=== PATIENT | male | born 1945 | race Caucasian/White ===

== ENCOUNTER 2018-04-20 10:59 | Emergency (ER) | payer OTHER, SELFPAY ==
--- NOTE | 2018-04-20 11:07 | ED.HA ---
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 Patient states that it has been going on for greater than 1 week. States that has been worsening over the past week. Has tried his 's pain medication at home without any improvement. Denies any vision changes. Denies any pain with movement of his mouth. Does point to his left yarsani. States that is reproducible with palpation on the left side. No balance issues. No changes in his baseline Parkinson's issues. States that it was a gradual onset. Has not any fevers. No neck pain. Related Data Home Medications Medication Instructions Recorded Confirmed atorvastatin 10 mg PO DAILY 04/20/18 04/20/18 carbidopa-levodopa 1 tab PO TID 04/20/18 04/20/18 citalopram 20 mg PO DAILY 04/20/18 04/20/18 diltiazem HCl [Cartia XT] 240 mg PO DAILY 04/20/18 04/20/18 levothyroxine 100 mcg PO DAILY 04/20/18 04/20/18 warfarin 5 mg PO QTUTHSA 04/20/18 04/20/18 Previous Rx's Medication Instructions Recorded pantoprazole [Protonix] 40 mg PO QDAY #30 tab 12/20/16 orcyivydvc-xihcstoczwtow-ncxd 1 cap PO Q4H PRN #7 cap 04/20/18 Allergies Allergy/AdvReac Type Severity Reaction Status Date / Time codeine [CODEINE] Allergy Unknown Abdominal Verified 04/20/18 11:27 Pain Penicillins [PENICILLINS] Allergy Unknown Abdominal Verified 04/20/18 11:27 Pain aspirin [ASPIRIN] AdvReac Mild STOMACH Verified 04/20/18 11:27 PROBLEMS oxycodone [OXYCODONE] AdvReac Unknown Abdominal Verified 04/20/18 11:27 Pain Review of Systems Constitutional Denies chills, Denies fatigue, Denies fever(s) and Reports headache(s) Eyes Denies blurry vision, Denies change in vision, Denies diplopia, Denies dry eyes, Denies floaters, Denies irritation, Denies loss of vision, Denies eye pain, Denies seeing flashes and Denies photophobia ENT Ears, Nose, Mouth, and Throat: Denies dental pain, Denies vertigo, Denies dizziness, Denies otalgia, Denies facial pain, Reports headache(s), Denies hearing loss, Denies nasal trauma, Denies disequilibrium, Denies sinus pain and Denies sore throat Cardiovascular Denies chest pain, Denies palpitations and Denies dyspnea Respiratory Denies cough and Denies dyspnea Gastrointestinal Gastrointestinal: Denies constipation, Denies diarrhea, Denies nausea and Denies vomiting Genitourinary Denies dysuria and Denies flank pain Musculoskeletal Denies myalgias, Denies arthralgias, Denies numbness and Denies tingling Integumentary/Breasts Denies lesions and Denies rash Neurologic Denies confusion, Denies vertigo, Denies dizziness, Reports headache(s), Denies lack of coordination, Denies focal weakness, Denies loss of vision, Denies memory loss, Denies numbness, Denies radicular pain, Denies sensory deficit, Denies tingling, Denies paresthesias and Denies disequilibrium Psychiatric Denies confusion and Denies memory loss Endocrine Denies fatigue and Denies palpitations Hematologic/Lymphatic Reports easy bleeding (On Coumadin) [facility] Social History Smoking Status: Never smoker Exam Initial Vital Signs Initial Vital Signs: Vital Signs Temperature 98.3 F 04/20/18 11:19 Pulse Rate 83 04/20/18 11:19 Respiratory Rate 20 04/20/18 11:19 Blood Pressure 135/81 H 04/20/18 11:19 Pulse Oximetry 97 04/20/18 11:19 Const General: cooperative, healthy appearing, comfortable, well developed, well groomed and No acute distress Nutritional Appearance: average body habitus Orientation: alert, awake and oriented x3 HENMT Head: normal to inspection, normocephalic, atraumatic, No palpable skull fracture, No raccoon eyes and temporal artery tenderness (Left) Ears: hearing grossly normal bilaterally, TM's normal bilaterally and EAC's normal Nose: external nose normal Face and sinus: normal facial exam and sinuses nontender Mouth: oral mucosae normal Teeth and gingiva: other Eyes General: appearance normal, both eyes and all related structures Conjunctivae: conjunctivae normal Pupils: PERRL EOM: EOM intact bilaterally Resp Effort & Inspection: normal respiratory effort Auscultation: clear to auscultation bilaterally Cardio Rate: regular rate Rhythm: regular rhythm Pulses: radial pulses present Skin Lesions: no lesions Rashes: no rashes Neuro General: alert, awake, oriented x3, gait normal, tone normal, moves all extremities, normal light touch, pain and propioception, no meningeal signs and CN's II-XI intact bilaterally Cranial Nerves: CN's II-XI intact bilaterally Cognition: normal cognition Motor: muscle tone normal throughout Sensory Exam: no sensory deficits noted Extrem General: normal to inspection and full ROM Psych Appearance: grossly normal and well kempt Course Orders Ordered: ED Orders 04/20/18 11:01 Basic Metabolic Panel Stat Complete Blood Count AUTO DIFF Stat Partial Thromboplastin Time Stat Prothrombin Time INR Stat 04/20/18 11:07 CT head/brain wo con Stat 04/20/18 11:33 C-Reactive Protein Quant Stat Erythrocyte Sedimentation Rate Stat Discontinued Medications Diphenhydramine HCl (Benadryl) 25 mg IV NOW ONE Stop: 04/20/18 12:48 Last Admin: 04/20/18 13:05 Dose: 25 mg Metoclopramide HCl (Reglan) 10 mg IV NOW ONE Stop: 04/20/18 12:48 Last Admin: 04/20/18 13:05 Dose: 10 mg Vital Signs - 8 hr 04/20/18 11:19 04/20/18 12:32 04/20/18 13:01 Temperature 98.3 F Pulse Rate 83 76 69 Respiratory Rate 20 16 18 Blood Pressure 135/81 H Blood Pressure [Left Arm] 118/72 125/86 H Pulse Oximetry 97 98 98 MDM - Headache Lab Data Attestation: I reviewed the patient's lab results. Result diagrams: 04/20/18 11:01 04/20/18 11:01 Lab Results 04/20/18 04/20/18 04/20/18 Range/Units 11:01 11:01 11:01 WBC 4.4 L (4.5-11.0) X10^3/uL RBC 3.89 L (4.5-5.9) X10^6/uL Hgb 11.6 L (13.5-17.5) g/dL Hct 35.1 L (41-53) % MCV 90.1 (80-100) fL MCH 29.7 (26-34) PG MCHC 32.9 (30-36) % RDW 14.8 (11.6-14.8) % Plt Count 130 L (150-400) X10^3/uL Neut % (Auto) 61.9 (50-75) % Lymph % (Auto) 27.5 (25-40) % [place] % (Auto) 7.2 (3-14) % Eos % (Auto) 3.1 (2-4) % Baso % (Auto) 0.3 (0-2) % Neut # (Auto) 2800 L (9968-9127) /uL ESR (0-15) MM/HR PT 41.0 H (10.1-12.7) SECONDS INR 3.8 H (0.9-1.3) APTT 46 H (26.4-36.2) SECONDS Sodium 140 (137-145) mmol/L Potassium 4.5 (3.4-5.1) mmol/L Chloride 104 (98-107) mmol/L Carbon Dioxide 29 (22-32) mmol/L BUN 22 H (9-20) mg/dL Creatinine 0.90 (0.66-1.25) mg/dL Estimated GFR > 60.0 (>60) mL/min BUN/Creatinine Ratio 24.4 H (6-22) Glucose 103 (80-110) mg/dL Calcium 8.2 L (8.4-10.2) mg/dL C-Reactive Protein (<1.0) mg/dL 04/20/18 04/20/18 Range/Units 11:33 11:33 WBC (4.5-11.0) X10^3/uL RBC (4.5-5.9) X10^6/uL Hgb (13.5-17.5) g/dL Hct (41-53) % MCV (80-100) fL MCH (26-34) PG MCHC (30-36) % RDW (11.6-14.8) % Plt Count (150-400) X10^3/uL Neut % (Auto) (50-75) % Lymph % (Auto) (25-40) % [place] % (Auto) (3-14) % Eos % (Auto) (2-4) % Baso % (Auto) (0-2) % Neut # (Auto) (2610-4176) /uL ESR 17 H (0-15) MM/HR PT (10.1-12.7) SECONDS INR (0.9-1.3) APTT (26.4-36.2) SECONDS Sodium (137-145) mmol/L Potassium (3.4-5.1) mmol/L Chloride (98-107) mmol/L Carbon Dioxide (22-32) mmol/L BUN (9-20) mg/dL Creatinine (0.66-1.25) mg/dL Estimated GFR (>60) mL/min BUN/Creatinine Ratio (6-22) Glucose (80-110) mg/dL Calcium (8.4-10.2) mg/dL C-Reactive Protein < 0.5 (<1.0) mg/dL Imaging Data CT scan - head: Radiologist's impression: PROCEDURE: CT HEAD/BRAIN WO CON INDICATIONS: Left-sided headache; on Coumadin. TECHNIQUE: Noncontrast 4.5 mm thick angled axial sections acquired from the foramen magnum to the vertex, with coronal and sagittal reformats. For radiation dose reduction, the following was used: automated exposure control, adjustment of mA and/or kV according to patient size. COMPARISON: [facility], MR, BRAIN W&WO CONTRAST, 02/06/2016, 17:01. [facility], CT, HEAD WITHOUT CONTRAST, 05/15/2017, 10:35. FINDINGS: Image quality: Excellent. CSF spaces: Basal cisterns are patent. No extra-axial fluid collections. The ventricles are symmetric in size and shape. Brain: No intracranial bleeds or masses. There is cerebral volume loss for age, with resultant ventricular and sulcal prominence. There are periventricular and deep white matter chronic small vessel ischemic changes. Bilateral dystrophic basal ganglia calcifications. There is intracranial internal carotid artery atherosclerosis. Skull and face: Calvarium and visualized facial bones appear intact, without suspicious lesions. Sinuses: Visualized sinuses and mastoids are clear. IMPRESSION: 1. No acute intracranial abnormalities. 2. Cerebral volume loss and chronic microvascular ischemic changes. Dictated by: Tripp Dasilva M.D. on 04/20/2018 at 11:46 Approved by: Tripp Dasilva M.D. on 04/20/2018 at 11:49 [facility] Narrative Medical decision making narrative: Head CT was negative. Baseline with his INR. Baseline with regard to his Parkinson's disease. Does have reproducible headache tenderness over his left yarsani. ESR CRP not consistent with temporal arteritis. Patient has no jaw claudication. Does have poor dentition however has no signs of a dental abscess. Patient's physical exam is also not consistent with trigeminal neuralgia. He was given Reglan and Benadryl in the emergency department which completely resolved his symptoms and he was asking to go home. Will hold on further workup for now. He was given return precautions. He expressed understanding and agreement with plan Discharge Plan Departure Patient Disposition: Home, Self-Care Clinical Impression: Headache Instructions: DI for Headache Activity Restrictions/Additional Instructions: Take the medication as directed. Call your primary care doctor for a follow-up. Continue all of your other medications as directed. Return to the emergency department for any new or worsening symptoms. Prescriptions: New xmveytwxep-owwepqyeiglvb-labu 50-300-40 mg capsule 1 cap PO Q4H PRN (Reason: pain) Qty: 7 RF: 0 No Action pantoprazole [Protonix] 40 MG tablet,delayed release (DR/EC) 40 mg PO QDAY Qty: 30 RF: 0 atorvastatin 10 mg Tablet 10 mg PO DAILY RF: 0 levothyroxine 100 mcg Tablet 100 mcg PO DAILY RF: 0 citalopram 20 mg Tablet 20 mg PO DAILY RF: 0 warfarin 5 mg Tablet 5 mg PO QTUTHSA RF: 0 diltiazem HCl [Cartia XT] 120 mg Capsule,Extended Release 24hr 240 mg PO DAILY RF: 0 carbidopa-levodopa 25-100 mg Tablet 1 tab PO TID RF: 0
[2018-04-20 11:19] VITALS: BP 135/81; PULSE 83; RESP 20; TEMP 36.8; O2SAT 97; BMI 22.2
[2018-04-20 11:24] LABS: Add Manual Diff / Slide Review NO; Basophils Percent Auto 0.3 % (0-2); Eosinophils Percent Auto 3.1 % (2-4); Hematocrit 35.1 % (41-53); Hemoglobin 11.6 g/dL (13.5-17.5); Lymphocytes Percent Auto 27.5 % (25-40); Mean Corpuscular HGB Conc 32.9 % (30-36); Mean Corpuscular Hemoglobin 29.7 PG (26-34); Mean Corpuscular Volume 90.1 fL (80-100); Monocytes Percent Auto 7.2 % (3-14); Neutrophils Absolute Auto 2800 /uL (3000-5900); Neutrophils Percent Auto 61.9 % (50-75); Platelet Count 130 X10^3/uL (150-400); Red Blood Cell Count 3.89 X10^6/uL (4.5-5.9); Red Cell Distribution Width 14.8 % (11.6-14.8); White Blood Cell Count 4.4 X10^3/uL (4.5-11.0)
[2018-04-20 11:29] LABS: INR 3.8 (0.9-1.3)
[2018-04-20 11:31] LABS: PTT Partial Thromboplastin Tim 46 SECONDS (26.4-36.2)
[2018-04-20 11:33] LABS: BUN Creatinine Ratio 24.4 (6-22); Blood Urea Nitrogen 22 mg/dL (9-20); Calcium 8.2 mg/dL (8.4-10.2); Carbon Dioxide 29 mmol/L (22-32); Chloride 104 mmol/L (98-107); Estimated Glomerular Filt Rate > 60.0 mL/min (>60); Glucose 103 mg/dL (80-110); HEMOLYSIS 17 (0-50); Potassium 4.5 mmol/L (3.4-5.1); Sodium 140 mmol/L (137-145)
[2018-04-20 12:06] LABS: C-Reactive Protein Quant < 0.5 mg/dL (<1.0); Erythrocyte Sedimentation Rate 17 MM/HR (0-15)
[2018-04-20 12:32] VITALS: BP 118/72; PULSE 76; RESP 16; O2SAT 98
[2018-04-20 13:01] VITALS: BP 125/86; PULSE 69; RESP 18; O2SAT 98
[2018-04-20] MEDS: METOCLOPRAMIDE 10 MG/2 ML INJ IV (13:05)
[2018-04-20] MEDS: diphenhydrAMINE 50 MG/ML VIAL 25 MG IV (13:05)
[2018-04-20 13:35] VITALS: BP 126/67; PULSE 71; RESP 16; O2SAT 98
== END 2018-04-20 13:45 | disposition home or self-care (01) ==
PROVIDERS: Emergency Provider Emergency Medicine; Family Provider Family Medicine; PCP Family Medicine
DX: R51 Headache (principal)
CPT/HCPCS: 70450; 80048; 85025; 85610; 85651; 85730; 86140; 96374; 96375; 99283; 99284; J1200; J2765

== ENCOUNTER → 2018-06-02 16:08 | Outpatient (CLI) | payer OTHER, SELFPAY ==
--- NOTE | 2018-06-02 16:12 | DI.MRI.S_ITS ---
PROCEDURE: MR ORBITS FACE NECK WO CON INDICATIONS: LEFT MAXILLARY FACIAL PAIN TECHNIQUE: Noncontrast sagittal T1 spin echo, axial FLAIR, axial gradient echo, axial diffusion and ADC acquired through the brain. Coronal STIR, thin-slice axial T1 spin echo through the orbits. After the administration of contrast, thin-slice axial and coronal T1 spin echo with fat saturation through the orbits, axial T1 spin echo with fat saturation through the brain. COMPARISON: [facility], CT, CT HEAD/BRAIN WO CON, 04/20/2018, 11:17. CT, HEAD WITHOUT CONTRAST, 05/05/2007, 15:17. [facility], CT, HEAD WITHOUT CONTRAST, 05/15/2017, 10:35. [facility], MR, BRAIN W&WO CONTRAST, 02/06/2016, 17:01. [facility], MR, BRAIN WITHOUT CONTRAST, 01/05/2010, 7:51. FINDINGS: Image quality: Image quality and diagnostic sensitivity the study severely limited by poor qjvolr-uo-vedds and poor anatomic resolution of the study. Because of thoracic spine kyphosis, the head coil could not be used for image acquisition. Body coil was utilized for image acquisition. Image quality also limited by patient motion artifact. Orbits: Globes are symmetrical. The optic nerves are normal in size, without abnormal signal or enhancement. No retrobulbar masses or fat abnormalities. The extra-ocular muscles are normal and symmetric in appearance. Lacrimal glands are normal. Optic chiasm is normal. Periorbital soft tissues appear normal. CSF spaces: Ventricles are normal in shape. Mild, diffuse prominence of CSF space. Basal cisterns are patent. No extra-axial fluid collections. Brain: No intracranial bleeds or mass effects. No abnormal intracranial enhancement. Bains-white matter interface is intact. Diffusion weighted images demonstrate no acute ischemic insults. Punctate and confluence areas of increased T2 signal noted in the periventricular and subcortical white matter tracts likely represent chronic microvascular ischemic changes which have progressed in the interval since prior MRI obtained 02/06/16. Brainstem appears normal. Normal intravascular flow voids are present. The trigeminal nerves are not well-visualized and cannot be directly evaluated. No abnormal mass or definite abnormal signal identified along the expected course of the trigeminal nerve or trigeminal nerve divisions. Skull and face: Calvarial marrow is normal in signal. Sinuses: Mucous retention cysts versus polyps are noted in the maxillary sinuses bilaterally. mastoids are clear. IMPRESSION: 1. Image quality and diagnostic sensitivity of the study severely limited by poor dilcwr-el-ltyre, poor anatomic resolution and patient motion artifact. 2. No gross acute intracranial disease process. 3. Mild diffuse cerebral volume loss. 4. Probable moderate periventricular and subcortical white matter chronic microvascular ischemic changes. Dictated by: Barbara Lares MD, PhD on 06/03/2018 at 9:55 Approved by: Barbara Lares MD, PhD on 06/03/2018 at 10:07
== END ==
PROVIDERS: Family Provider Family Medicine; PCP Family Medicine; Visit Provider Family Medicine
DX: G50.1 Atypical facial pain (principal)
CPT/HCPCS: 70540

== ENCOUNTER 2019-12-11 15:05 | Inpatient (IN) | payer OTHER, SELFPAY ==
[2019-12-11] VITALS (11 sets, daily range): BP systolic 115–138; BP diastolic 74–87; PULSE 84–105; RESP 16–30; TEMP 36.4–37.5; O2SAT 95–98; BMI 21.7
--- NOTE | 2019-12-11 15:31 | DI.RAD.S_ITS ---
PROCEDURE: XR CHEST 1V INDICATIONS: hemoptasis TECHNIQUE: One view of the chest was acquired. COMPARISON: [facility], , CHEST 1 VIEW, 02/06/2016, 16:59. FINDINGS: Surgical changes and devices: Median sternotomy changes are present. Lungs and pleura: Lungs are clear. No pleural effusions or pneumothorax. Mediastinum: Mediastinal contours appear normal. The heart is markedly enlarged. There is aortic atherosclerosis. Bones and chest wall: No suspicious bony lesions. Degenerative changes of the shoulders and spine are similar to the prior study. Overlying soft tissues appear unremarkable. IMPRESSION: Cardiomegaly without overt heart failure. No acute cardiopulmonary process is appreciated. Dictated by: Moses Nolasco M.D. on 12/11/2019 at 15:11 Approved by: Moses Nolasco M.D. on 12/11/2019 at 15:23
--- NOTE | 2019-12-11 15:46 | ED.GIBLEED ---
HPI - GI Bleed General Chief complaint: GI Bleed Stated complaint: INR 8.0 PEEING BLOOD Time Seen by Provider: 12/11/19 15:30 History of Present Illness HPI Narrative: 74-year-old gentleman with chronic atrial fibrillation anticoagulated with an INR of 8 noted in his primary care physician's office today. History of a mitral valve repair, hypertension, hypothyroid and Parkinson's disease. He notes that there is a small abrasion over the bridge of his nose from a CPAP mask that his continued to bleed lightly over the last 24 hours. He noticed black stool this morning, no abdominal pain, no dyspnea does not describe bleeding from his mouth or gums, no chest pain. He notes significant increased bruises all over his body and has a moderately large bruise over the left upper chest wall and also notes some hematuria starting today without any dysuria or frequency. Related Data Home Medications Medication Instructions Recorded Confirmed atorvastatin 10 mg PO DAILY 04/20/18 12/11/19 carbidopa-levodopa 1 tab PO TID 04/20/18 12/11/19 citalopram 20 mg PO DAILY 04/20/18 12/11/19 diltiazem HCl [Cartia XT] 120 mg PO DAILY 04/20/18 12/11/19 levothyroxine 100 mcg PO DAILY 04/20/18 12/11/19 warfarin 5 mg PO QTUTHSA 04/20/18 12/11/19 mirtazapine 15 mg PO DAILY 12/11/19 12/11/19 pantoprazole [Protonix] 40 mg PO DAILY 12/11/19 12/11/19 Allergies Allergy/AdvReac Type Severity Reaction Status Date / Time codeine [CODEINE] Allergy Unknown Abdominal Verified 04/20/18 11:27 Pain Penicillins [PENICILLINS] Allergy Unknown Abdominal Verified 04/20/18 11:27 Pain aspirin [ASPIRIN] AdvReac Mild STOMACH Verified 04/20/18 11:27 PROBLEMS oxycodone [OXYCODONE] AdvReac Unknown Abdominal Verified 04/20/18 11:27 Pain Review of Systems Review of Systems Narrative: All systems reviewed and are unremarkable except as noted in HPI and below Patient History Medical History (Updated 12/11/19 @ 17:24 by Brianne Kelley MD) Anticoagulation goal of INR 2.5 to 3.5 (Acute) Chronic atrial fibrillation (Acute) FH: mitral valve repair (Acute) Tremor (Acute) Social History Smoking Status: Never smoker Smoking Status: Never smoker alcohol intake frequency: holidays/special occasions only Substance Use Type: does not use Exam Narrative Exam Narrative: General: Frail-appearing gentleman, in no acute distress. Able to speak in full sentences and cooperate with exam. HEENT: Moist mucous membranes, normal sclera with reactive pupils, small abrasion over the bridge of his nose with dried blood around it Neck: No JVD, supple Respiratory: Lungs are clear to auscultation, no wheezing no rales no rhonchi. Full and symmetrical air movement. 3 x 3 cm dark purple hematoma over the left upper chest wall that is not tender to palpation Cardiac: Irregular rhythm with 4/6 systolic ejection murmur heard over the entire precordium Abdomen: Soft, nontender good bowel tones, no flank pain Skin: Warm and dry, no rashes. Multiple bruises over various parts of his body in various stages of healing Neurologic: Grossly neurologically intact with mild parkinsonian-type tremor bilaterally Extremities: No trauma, well perfused, 2+ lower extremity in the left foot right with compression sock in place Psych: Cooperative, appropriate insight and affect Rectal: Melanotic stool, rapidly guaiac-positive, nontender Initial Vital Signs Initial Vital Signs: Vital Signs Temperature 97.6 F 12/11/19 15:21 Pulse Rate 91 H 12/11/19 15:21 Respiratory Rate 16 12/11/19 15:21 Blood Pressure 119/74 12/11/19 15:21 Pulse Oximetry 97 12/11/19 15:21 Course Orders Ordered: ED Orders 12/11/19 15:31 XR chest 1V Stat 12/11/19 15:53 Complete Blood Count AUTO DIFF Stat Comprehensive Metabolic Panel Stat Partial Thromboplastin Time Stat Prothrombin Time INR Stat 12/11/19 16:20 Fresh Frozen Plasma Stat Type and Screen Stat Sodium Chloride (Normal Saline 0.9%) 1,000 mls @ 150 mls/hr IV CONT ОЛЬГА Last Admin: 12/11/19 16:05 Dose: 150 mls/hr Documented by: JONATHON Pantoprazole Sodium 80 mg/ (Sodium Chloride) 100 mls @ 10 mls/hr IV CONT ОЛЬГА Last Admin: 12/11/19 16:07 Dose: 8 mg/hr, 10 mls/hr Documented by: JONATHON Discontinued Medications Pantoprazole Sodium (Protonix) 40 mg IV NOW ONE Stop: 12/11/19 15:31 Last Admin: 12/11/19 16:11 Dose: 40 mg Documented by: JONATHON Phytonadione (Mephyton) 10 mg PO NOW ONE Stop: 12/11/19 15:46 Last Admin: 12/11/19 16:06 Dose: 10 mg Documented by: JONATHON Vital Signs Vital signs: Vital Signs - 8 hr 12/11/19 15:21 12/11/19 15:38 12/11/19 16:47 Temperature 97.6 F Pulse Rate 91 H 105 H 90 Respiratory Rate 16 30 H 16 Blood Pressure 119/74 Blood Pressure [Left Arm] 138/75 126/76 Pulse Oximetry 97 98 96 12/11/19 17:24 Temperature Pulse Rate 88 Respiratory Rate 21 Blood Pressure Blood Pressure [Left Arm] 123/77 Pulse Oximetry 95 MDM - GI Bleed Medical Records Attestation: I reviewed the patient's medical records. Lab Data Attestation: I reviewed the patient's lab results. Lab results narrative: Comparison H&H from April of 2018 is 11.6 and 35.1 INR 11.1 up from 8.0 noticed that his primary care office today Result diagrams: 12/11/19 15:53 12/11/19 15:53 Labs: Lab Results 12/11/19 12/11/19 12/11/19 Range/Units 15:53 15:53 15:53 WBC 6.0 (4.5-11.0) X10^3/uL RBC 3.26 L (4.5-5.9) X10^6/uL Hgb 10.0 L (13.5-17.5) g/dL Hct 30.2 L (41-53) % MCV 92.6 (80-100) fL MCH 30.6 (26-34) PG MCHC 33.0 (30-36) % RDW 14.0 (11.6-14.8) % Plt Count 110 L (150-400) X10^3/uL Neut % (Auto) 69.1 (50-75) % Lymph % (Auto) 18.8 L (25-40) % [place] % (Auto) 9.1 (3-14) % Eos % (Auto) 1.6 L (2-4) % Baso % (Auto) 1.4 (0-2) % Neut # (Auto) 4200 (5698-5410) /uL Lymph # (Auto) 1100 (3806-7964) /uL [place] # (Auto) 500 (0-900) /uL Eos # (Auto) 100 (0-450) /uL Baso # (Auto) 100 (0-100) /uL PT 124.3 H (10.1-12.7) SECONDS INR 11.1 H* (0.9-1.3) APTT 70 H D (26.4-36.2) SECONDS Sodium 142 (137-145) mmol/L Potassium 4.5 (3.4-5.1) mmol/L Chloride 109 H (98-107) mmol/L Carbon Dioxide 28 (22-32) mmol/L BUN 37 H (9-20) mg/dL Creatinine 1.10 (0.66-1.25) mg/dL Estimated GFR > 60.0 (>60) mL/min BUN/Creatinine Ratio 33.6 H (6-22) Glucose 100 (80-110) mg/dL Calcium 7.3 L (8.4-10.2) mg/dL Total Bilirubin 0.7 (0.2-1.3) mg/dL AST 50 (17-59) IU/L ALT 10 (<50) IU/L Alkaline Phosphatase 128 H (38-126) U/L Total Protein 7.3 (6.3-8.2) g/dL Albumin 4.1 (3.5-5.0) g/dL Globulin 3.2 (1.7-4.1) g/dL Albumin/Globulin Ratio 1.3 (1.0-2.8) Blood Type Antibody Screen 12/11/19 Range/Units 16:20 WBC (4.5-11.0) X10^3/uL RBC (4.5-5.9) X10^6/uL Hgb (13.5-17.5) g/dL Hct (41-53) % MCV (80-100) fL MCH (26-34) PG MCHC (30-36) % RDW (11.6-14.8) % Plt Count (150-400) X10^3/uL Neut % (Auto) (50-75) % Lymph % (Auto) (25-40) % [place] % (Auto) (3-14) % Eos % (Auto) (2-4) % Baso % (Auto) (0-2) % Neut # (Auto) (5150-6269) /uL Lymph # (Auto) (3105-3217) /uL [place] # (Auto) (0-900) /uL Eos # (Auto) (0-450) /uL Baso # (Auto) (0-100) /uL PT (10.1-12.7) SECONDS INR (0.9-1.3) APTT (26.4-36.2) SECONDS Sodium (137-145) mmol/L Potassium (3.4-5.1) mmol/L Chloride (98-107) mmol/L Carbon Dioxide (22-32) mmol/L BUN (9-20) mg/dL Creatinine (0.66-1.25) mg/dL Estimated GFR (>60) mL/min BUN/Creatinine Ratio (6-22) Glucose (80-110) mg/dL Calcium (8.4-10.2) mg/dL Total Bilirubin (0.2-1.3) mg/dL AST (17-59) IU/L ALT (<50) IU/L Alkaline Phosphatase (38-126) U/L Total Protein (6.3-8.2) g/dL Albumin (3.5-5.0) g/dL Globulin (1.7-4.1) g/dL Albumin/Globulin Ratio (1.0-2.8) Blood Type O Positive Antibody Screen Negative [facility] Narrative Medical decision making narrative: Iatrogenic hypocoagulable state with evidence of GI bleeding, mild mops this, hematuria and multiple superficial bruises. No evidence of intra-abdominal or retroperitoneal bleeding. Hemodynamically and clinically stable at this time. Will need hospital admission and observation while coagulopathy is treated. He has received 10 mg of oral vitamin K and FFP has been ordered as well. 175: discussed with Dr Blackwood. Patient will be admitted to the ICU at [facility]. He is clinically stable in the department and ready for transfer at this time. Discharge Plan Departure Patient Disposition: Admitted As Inpatient Clinical Impression: Chronic atrial fibrillation, Acute GI bleeding Accidental overdose of anticonvulsant Qualifiers: Encounter type: initial encounter Qualified Code(s): T42.71XA - Poisoning by unspecified antiepileptic and sedative-hypnotic drugs, accidental (unintentional), initial encounter Discharge Date/Time: 12/11/19 17:25 Referrals: Nnao Brooks MD [Primary Care Provider] - Admit Date/Time: 12/11/19 17:24 Admit Provider: Israel Gramajo
[2019-12-11 16:03] LABS: Add Manual Diff / Slide Review NO; Basophils Absolute Auto 100 /uL (0-100); Basophils Percent Auto 1.4 % (0-2); Eosinophils Absolute Auto 100 /uL (0-450); Eosinophils Percent Auto 1.6 % (2-4); Hematocrit 30.2 % (41-53); Lymphocytes Absolute Auto 1100 /uL (1100-4500); Lymphocytes Percent Auto 18.8 % (25-40); Mean Corpuscular Hemoglobin 30.6 PG (26-34); Mean Corpuscular Volume 92.6 fL (80-100); Monocytes Absolute Auto 500 /uL (0-900); Monocytes Percent Auto 9.1 % (3-14); Neutrophils Absolute Auto 4200 /uL (1500-7000); Neutrophils Percent Auto 69.1 % (50-75); Platelet Count 110 X10^3/uL (150-400); Red Blood Cell Count 3.26 X10^6/uL (4.5-5.9)
[2019-12-11] MEDS: SODIUM CHLORIDE 0.9% 1,000 ML 150 ML IV (16:05)
[2019-12-11] MEDS: PHYTONADIONE (VIT K1) 5 MG TABLET 10 MG PO (16:06)
[2019-12-11] MEDS: PANTOPRAZOLE 80 MG in SODIUM CHLORIDE 0.9% 100 ML 10 ML IV ×2 (16:07→23:08)
[2019-12-11] MEDS: PANTOPRAZOLE 40 MG VIAL IV (16:11)
[2019-12-11 16:13] LABS: PTT Partial Thromboplastin Tim 70 SECONDS (26.4-36.2)
[2019-12-11 16:16] LABS: Alanine Aminotransferase 10 IU/L (<50); Albumin 4.1 g/dL (3.5-5.0); Albumin Globulin Ratio 1.3 (1.0-2.8); Alkaline Phosphatase 128 U/L (38-126); Aspartate Aminotransferase 50 IU/L (17-59); BUN Creatinine Ratio 33.6 (6-22); Bilirubin Total 0.7 mg/dL (0.2-1.3); Blood Urea Nitrogen 37 mg/dL (9-20); Calcium 7.3 mg/dL (8.4-10.2); Carbon Dioxide 28 mmol/L (22-32); Chloride 109 mmol/L (98-107); Estimated Glomerular Filt Rate > 60.0 mL/min (>60); Globulin 3.2 g/dL (1.7-4.1); Glucose 100 mg/dL (80-110); HEMOLYSIS < 15 (0-50); Potassium 4.5 mmol/L (3.4-5.1); Sodium 142 mmol/L (137-145); Total Protein 7.3 g/dL (6.3-8.2)
[2019-12-11 16:29] LABS: Prothrombin Time 124.3 SECONDS (10.1-12.7)
[2019-12-11 16:30] LABS: INR 11.1 (0.9-1.3)
--- NOTE | 2019-12-11 19:49 | PC.NURSE ---
Patient came up from ER via stretcher and was able to ambulate to bathroom and bed with cane, 1 person assist. A/Ox4. Patient is having hematuria, has no complaints of pain or abdominal discomfort. Bruising noted significantly on chest wall. Lung sounds clear. Moderate tremors- PMHX of Parkinsons.
[2019-12-11] MEDS: SODIUM CHLORIDE 0.9% 1,000 ML 100 ML IV (20:28)
[2019-12-11] MEDS: CARBIDOPA-LEVODOPA 25/100 TABLET 1 EACH PO (20:49)
[2019-12-11 21:43] LABS: Magnesium 1.9 mg/dL (1.6-2.3)
--- NOTE | 2019-12-11 22:59 | PM.HP.1 ---
History of Present Illness History of Present Illness Date Patient Seen: 12/11/19 Time Patient Seen: 20:20 Chief complaint: INR 8.0 Narrative: Mr. Daniel Lord is a 74-year-old male with history significant for coronary artery disease, mitral valve repair, chronic atrial fibrillation anticoagulation with warfarin, hypertension, hypothyroidism, parkinsonism, chronic back pain with left foot drop and obstructive sleep apnea using CPAP who presents to the ER after he noticed bright red hematuria today. The patient has been on warfarin for 70 years and has recently noticed increased bruising and dark stool. Patient sustained a fall 3 days ago and has a large bruise on his left chest. He had routine laboratory tests completed at [facility] where they found his INR to be greater than 8.0 and sent him to the ER for further evaluation. The patient reports no complaints of chest pain and is aware of occasional palpitations. He has no shortness of breath and denies cough or wheezing. He has no complaints of abdominal pain, heartburn, nausea vomiting. He has had no hemoptysis, hematemesis or hematochezia. He reports no recent complaints of fevers or chills no nasal congestion or sore throat. He is normally active and independent in activities of daily living. Upon arrival the ER the patient is afebrile with temperature 97.6?, heart rate 91, blood pressure 119/74 respiratory rate of 16 with saturation 97%. On laboratory analysis the patient is found have a white count of 6.0, hemoglobin 10.0, hematocrit of 30.2 and platelets of 110. On his coagulation studies he has a PT of 124.3, INR of 11.1 and PTT of 70. His electrolytes are within normal limits and he has a BUN of 37 and creatinine 1.1. His nonfasting glucose is 100. He has a bilirubin of 0.7, AST of 50, ALT of 10 and alkaline phosphatase of 128. In the ER the patient was given vitamin K 10 mg by mouth and a unit of fresh frozen plasma. The patient remains asymptomatic and stable vital signs. Patient is admitted to the hospital for supratherapeutic INR and GI bleeding. Patient History Medical History (Updated 12/12/19 @ 10:12 by SAMUEL Bennett) Anticoagulation goal of INR 2.5 to 3.5 (Acute) Chronic atrial fibrillation (Acute) Hypertension (Acute) Hypothyroidism (Acute) MARCELO (obstructive sleep apnea) (Acute) Parkinsonism (Acute) Tremor (Acute) Surgical History (Updated 12/12/19 @ 10:12 by SAMUEL Bennett) H/O mitral valve repair (Acute) History of appendectomy (Acute) History of back surgery (Acute) History of surgery on wrist (Acute) Family & Social History Family History (Updated 12/12/19 @ 10:13 by SAMUEL Bennett) Father Ruptured aneurysm of artery Mother Cancer Sister Cardiac disease Social History: household members spouse,children Prior Living Arrangements Mobile home Safety & Behavioral: Feels Safe in Current Yes Environment Been Physically Hurt or No Threatened By a Person Suicidal Ideation Description None Tobacco & Substance use: Smoking Status Never smoker alcohol intake frequency holiday/special occasion Substance Use Type does not use Comment: Advanced directives: The patient states he has advanced directives and states his desire to be FULL CODE. He designates his please set to be his surrogate decision maker. Meds Home Medications and Allergies Home Medications Medication Instructions Recorded Confirmed Type atorvastatin 10 mg PO DAILY 04/20/18 12/11/19 History carbidopa-levodopa 1 tab PO TID 04/20/18 12/11/19 History citalopram 20 mg PO DAILY 04/20/18 12/11/19 History diltiazem HCl [Cartia XT] 120 mg PO DAILY 04/20/18 12/11/19 History levothyroxine 100 mcg PO DAILY 04/20/18 12/11/19 History warfarin 5 mg PO QTUTHSA 04/20/18 12/11/19 History mirtazapine 15 mg PO DAILY 12/11/19 12/11/19 History pantoprazole [Protonix] 40 mg PO DAILY 12/11/19 12/11/19 History Allergies Allergy/AdvReac Type Severity Reaction Status Date / Time codeine [CODEINE] Allergy Unknown Abdominal Verified 04/20/18 11:27 Pain Penicillins [PENICILLINS] Allergy Unknown Abdominal Verified 04/20/18 11:27 Pain aspirin [ASPIRIN] AdvReac Mild STOMACH Verified 04/20/18 11:27 PROBLEMS oxycodone [OXYCODONE] AdvReac Unknown Abdominal Verified 04/20/18 11:27 Pain Review of Systems Review of Systems ROS: Yes All systems reviewed with the patient and are negative except as otherwise documented Exam Vital Signs (past 8 hours): - 12/11/19 15:21 12/11/19 15:38 12/11/19 16:47 Temperature 97.6 F Pulse Rate 91 H 105 H 90 Respiratory Rate 16 30 H 16 Blood Pressure 119/74 Blood Pressure [Left Arm] 138/75 126/76 Pulse Oximetry 97 98 96 12/11/19 17:24 12/11/19 17:43 12/11/19 18:00 Temperature 98.9 F 98.3 F Pulse Rate 88 96 H 89 Respiratory Rate 21 20 16 Blood Pressure 120/78 121/87 Blood Pressure [Left Arm] 123/77 Pulse Oximetry 95 12/11/19 18:02 12/11/19 18:22 12/11/19 18:50 Temperature 99.1 F 99.5 F Pulse Rate 91 H 84 92 H Respiratory Rate 18 25 H Blood Pressure 121/87 132/86 Blood Pressure [Left Arm] 124/75 Pulse Oximetry 96 97 97 12/11/19 20:51 12/11/19 22:05 Temperature Pulse Rate 86 84 Respiratory Rate 25 H 17 Blood Pressure 115/82 122/77 Blood Pressure [Left Arm] Pulse Oximetry 97 96 Oxygen Delivery Method Room Air Narrative Exam Narrative: GENERAL APPEARANCE: well developed, underweight male with BMI of 20.6, in no acute distress. HEENT: Normocephalic, PERRLA, conjunctiva clear, sclera anicteric, no sinus tenderness to percussion, no rhinorrhea or epistaxis, oropharynx is pink and moist without bleeding gums, no lymphadenopathy NECK/THYROID: neck supple, flat neck veins no carotid bruit, no thyromegaly, trachea midline. LYMPH NODES: no cervical or supraclavicular lymphadenopathy. SKIN: warm and dry, multiple ecchymotic areas with large bruise to left chest. HEART: regular rate and rhythm, S1-S2, 2/6 systolic murmur, no rubs or gallops, brisk capillary refill, no edema LUNGS: clear to auscultation bilaterally, no coarseness crackles or wheezing, no cough present CHEST: Symmetrical movement, no accessory muscle use, no pain to AP and lateral compression. ABDOMEN: Soft, tympanitic to percussion, no abdominal tenderness on palpation, no organomegaly, no flank or suprapubic tenderness, active bowel tones. BACK: Normal curvature, nontender to palpation, no CVA tenderness on percussion EXTREMITIES: moves all extremities, strength is 5/5 and symmetrical, no deformities or joint effusions. NEUROLOGIC: AAO x4, no lateralizing neurological findings, cranial nerves II-XII grossly intact , sensation intact to light touch, hard of hearing PSYCH: alert, cognitive function intact, good eye contact, appropriate with stable behavior Objective Labs Result Diagrams: 12/12/19 04:31 12/12/19 04:31 Labs: Laboratory Results - last 24 hr 12/11/19 12/11/19 12/11/19 15:53 15:53 15:53 WBC 6.0 RBC 3.26 L Hgb 10.0 L Hct 30.2 L MCV 92.6 MCH 30.6 MCHC 33.0 RDW 14.0 Plt Count 110 L Neut % (Auto) 69.1 Lymph % (Auto) 18.8 L Sunflower % (Auto) 9.1 Eos % (Auto) 1.6 L Baso % (Auto) 1.4 Neut # (Auto) 4200 Lymph # (Auto) 1100 Sunflower # (Auto) 500 Eos # (Auto) 100 Baso # (Auto) 100 PT 124.3 H INR 11.1 H* APTT 70 H D Sodium 142 Potassium 4.5 Chloride 109 H Carbon Dioxide 28 BUN 37 H Creatinine 1.10 Estimated GFR > 60.0 BUN/Creatinine Ratio 33.6 H Glucose 100 Calcium 7.3 L Magnesium Total Bilirubin 0.7 AST 50 ALT 10 Alkaline Phosphatase 128 H Total Protein 7.3 Albumin 4.1 Globulin 3.2 Albumin/Globulin Ratio 1.3 Blood Type Antibody Screen 12/11/19 12/11/19 15:53 16:20 WBC RBC Hgb Hct MCV MCH MCHC RDW Plt Count Neut % (Auto) Lymph % (Auto) Sunflower % (Auto) Eos % (Auto) Baso % (Auto) Neut # (Auto) Lymph # (Auto) Sunflower # (Auto) Eos # (Auto) Baso # (Auto) PT INR APTT Sodium Potassium Chloride Carbon Dioxide BUN Creatinine Estimated GFR BUN/Creatinine Ratio Glucose Calcium Magnesium 1.9 Total Bilirubin AST ALT Alkaline Phosphatase Total Protein Albumin Globulin Albumin/Globulin Ratio Blood Type O Positive Antibody Screen Negative Assessment & Plan Assessment & Plan narrative: This is a 74-year-old male patient who had onset of bright red hematuria today endorse a history of dark stools for several days. He has increased bruising and sustained a fall 3 days ago with large bruise left chest. 1. Acute Supratherapeutic INR, on warfarin, present on admission, active. -Patient present to the ER for acute onset of hematuria today. He endorses history of probable melanotic stools for several days. -Patient was seen at [facility] or is found have an elevated INR at 8 which is as high as there machine would indicate. The patient was referred to [place] [facility] for care. -In the ER the patient had an elevated INR of 11.1. -Patient acknowledges that his bills may have gotten mixed up and he may have taken extra warfarin. -Patient received 10 mg of vitamin K in the emergency department with 1 unit of fresh frozen plasma. -No overt signs of bleeding, no neurological changes, will check neuro status with vital signs. 2. Gastrointestinal bleeding with melena, present on admission, active. -Patient endorses dark stools for several days. No complaints of abdominal pain or cramping or heartburn. -The patient denies previous history of GI bleeding or gastric ulcers. -The patient takes Protonix at home will continue Protonix 40 mg twice daily. -Will evaluate continuation bleeding was serial H&Hs and need for surgical consult opposed to out patient follow-up bleeding stops. 3. Chronic Atrial fibrillation, present on admission, stable -Patient without complaints of chest pain, acknowledges episodes of tachyarrhythmias present with controlled rate in the 90s. -Will continue diltiazem XT 120 mg daily. 4. Essential hypertension, present on admission, stable -Patient with adequate blood pressure control with a pressure 119/74 upon arrival to the ER. -Will continue patient's home regimen of diltiazem XT 120 mg daily 5. Parkinson's disease, present on admission, stable -Patient is animated and moves all extremities with slight cogwheeling, mild tremor present. -Will continue patient's home regimen of carbidopa levodopa 25/100 3 times daily. -Will continue patient's home regimen of citalopram 20 mg daily and mirtazapine 12.5 mg daily. VTE prophylaxis: SCDs, patient with supratherapeutic INR. IV fluid: Normal saline 100 cc/hour Diet: Full liquid The patient is admitted to the hospital due to supratherapeutic INR with hematuria and GI bleed and it's attendant risk of complications and adverse events. The patient is admitted as an inpatient with expected length of stay to be greater than 2 midnights. Scores GCS [place] coma scale eye opening: Spontaneous [place] coma scale verbal response: Orientated Leobardo coma scale motor response: Obey commands Beau[place] coma scale total score: 15
--- NOTE | 2019-12-11 23:01 | PC.NURSE ---
IV is in Right hand, not Right AC as the ER charted
[2019-12-12] VITALS (20 sets, daily range): BP systolic 113–141; BP diastolic 70–90; PULSE 72–102; RESP 16–25; TEMP 36.2–37.2; O2SAT 96–100
[2019-12-12 00:11] LABS: Hematocrit 28.4 % (41-53); Hemoglobin 9.2 g/dL (13.5-17.5)
[2019-12-12 05:01] LABS: Add Manual Diff / Slide Review NO; Basophils Absolute Auto 0 /uL (0-100); Basophils Percent Auto 0.9 % (0-2); Eosinophils Absolute Auto 100 /uL (0-450); Eosinophils Percent Auto 1.8 % (2-4); Hematocrit 28.6 % (41-53); Hemoglobin 9.4 g/dL (13.5-17.5); Lymphocytes Absolute Auto 1000 /uL (1100-4500); Mean Corpuscular HGB Conc 32.9 % (30-36); Mean Corpuscular Hemoglobin 30.7 PG (26-34); Mean Corpuscular Volume 93.4 fL (80-100); Monocytes Absolute Auto 500 /uL (0-900); Monocytes Percent Auto 9.6 % (3-14); Neutrophils Absolute Auto 3700 /uL (1500-7000); Neutrophils Percent Auto 68.7 % (50-75); Platelet Count 87 X10^3/uL (150-400); Red Blood Cell Count 3.06 X10^6/uL (4.5-5.9); Red Cell Distribution Width 14.1 % (11.6-14.8); White Blood Cell Count 5.4 X10^3/uL (4.5-11.0)
[2019-12-12 05:10] LABS: PTT Partial Thromboplastin Tim 55 SECONDS (26.4-36.2)
[2019-12-12 05:11] LABS: Blood Urea Nitrogen 27 mg/dL (9-20); Calcium 7.1 mg/dL (8.4-10.2); Carbon Dioxide 27 mmol/L (22-32); Chloride 110 mmol/L (98-107); Estimated Glomerular Filt Rate > 60.0 mL/min (>60); Glucose 92 mg/dL (80-110); HEMOLYSIS < 15 (0-50); Potassium 4.2 mmol/L (3.4-5.1); Sodium 141 mmol/L (137-145)
[2019-12-12 05:14] LABS: Prothrombin Time 66.5 SECONDS (10.1-12.7)
[2019-12-12 05:18] LABS: INR 5.8 (0.9-1.3)
[2019-12-12] MEDS: LEVOTHYROXINE 100 MCG TABLET PO (06:26)
[2019-12-12] MEDS: MIRTAZAPINE 15 MG TABLET PO (08:33)
[2019-12-12] MEDS: CITALOPRAM 20 MG TABLET PO (08:33)
[2019-12-12] MEDS: dilTIAZem CD 120 MG CAP PO (08:33)
[2019-12-12] MEDS: CARBIDOPA-LEVODOPA 25/100 TABLET 1 EACH PO ×3 (08:33→20:58)
[2019-12-12] MEDS: ATORVASTATIN 10 MG TABLET PO (08:34)
[2019-12-12] MEDS: SODIUM CHLORIDE 0.9% 1,000 ML 100 ML IV (08:38)
--- NOTE | 2019-12-12 11:39 | CM.DANOTE ---
Discharge Planning/Care Management DCP: assessment: case received, EMR reviewed. Met with pt during and after Bedside Team Rounds. Introduced self and role. Pt is a 74 year old male who admitted last evening to care of hospitalist team. PCP: Dr. Senior Neurologist: DR. Lopez pt reports he sees him for Parkinson's management. Payer: [facility] Admission status: in process: per UR RN [place] Pt was sent over from [facility] for high INR. INR 11.1 when he arrived at ER. OT and PT are ordered. Pt is alert, his full cognitive ability is unknown at this point but he does answer questions about his home situation and overall abilities. He describes himself as able to function with his single point cane. His Amber typicially manages his medications for him has recently had open heart surgery and he admits that the whole medication management plan had fallen apart. Spoke then with Amber by phone. She will be here about 1300 today. She said she went over all his medications and found that he had taken the Coumadin very appropriately but that he had been having back pain and unbeknownst to family he had been taking aspirin. She says she knew instantly that this would be a problem. (Dr. Guerra is now alerted to same). Discussed ? of HH RN to help set up a system of med management at home that might be better than what they have. Amber says she had [facility] for a couple of weeks after her open heart surgery and they did that. She notes she did not think they needed this again but would defer to Dr. Guerra for her advice. She does say she prefers another agency if they must have HH . P: will be following. Will see what OT/PT advise. Pt may also benefit for HH therapy...to be determined. CM Discharge Assessment Start: 12/12/19 11:36 Freq: Status: Active Protocol: Document 12/12/19 11:37 ITV (Rec: 12/12/19 11:39 ITV [id number]) Discharge Planning Assessment Advance Directives? No History Provided By Patient,Medical Record Prior Living Arrangements Mobile home Household Members spouse,children Comment lives with Amber, her son and her brother. Type of transportation used prior to Drives own vehicle admit Comment pt admits to driving when I have to, says it likely is not a good idea. Dr. Guerra is aware and will address this with him. Needs Assistance With Managing Medications Whiteboard Updated in Patient Room with Yes name and ext. # of [employer] Review Status In Process
[2019-12-12] MEDS: WATER IV (12:45)
[2019-12-12] MEDS: DEXTROSE 5% IV (12:45)
[2019-12-12] MEDS: PHYTONADIONE IV (12:45)
[2019-12-12] MEDS: PANTOPRAZOLE 40 MG VIAL IV ×2 (13:08→20:58)
--- NOTE | 2019-12-12 14:26 | P.PN_ITS ---
Subjective Subjective Date Patient Seen: 12/12/19 Interval history: the patient is a 74-year-old male with a history of mitral valve replacement, chronic atrial fibrillation, on Coumadin. He presented to the hospital with a markedly. According to the patient's he has been taking his Coumadin as prescribed however he has taken additional aspirin as well. Patient did have hematuria on admission, he also has had melena. He received vitamin K in the emergency room in addition to FFP. He has had no further hematuria, his INR today is 5.8. Exam Vital Signs (past 8 hours): - 12/12/19 08:00 12/12/19 10:00 12/12/19 12:00 Temperature 98.9 F 98.0 F 98.5 F Pulse Rate 84 83 87 Respiratory Rate 16 18 16 Blood Pressure 137/90 139/84 137/85 Pulse Oximetry 96 98 100 12/12/19 14:00 Temperature 98.5 F Pulse Rate 84 Respiratory Rate 18 Blood Pressure 121/72 Pulse Oximetry 97 Oxygen Delivery Method Room Air Oxygen Flow Rate 0 Narrative Exam Narrative: Pleasant gentleman resting comfortably in no obvious distress lungs: Clear to auscultation cardiac exam: Irregularly irregular, normal S1-S2, positive click, 2/6 systolic ejection murmur abdomen: Soft nontender nondistended extremities: No edema Objective Labs Result Diagrams: 12/12/19 04:31 12/12/19 04:31 Labs: Laboratory Results - last 24 hr 12/11/19 12/11/19 12/11/19 15:53 15:53 15:53 WBC 6.0 RBC 3.26 L Hgb 10.0 L Hct 30.2 L MCV 92.6 MCH 30.6 MCHC 33.0 RDW 14.0 Plt Count 110 L Neut % (Auto) 69.1 Lymph % (Auto) 18.8 L Garrett % (Auto) 9.1 Eos % (Auto) 1.6 L Baso % (Auto) 1.4 Neut # (Auto) 4200 Lymph # (Auto) 1100 Garrett # (Auto) 500 Eos # (Auto) 100 Baso # (Auto) 100 PT 124.3 H INR 11.1 H* APTT 70 H D Sodium 142 Potassium 4.5 Chloride 109 H Carbon Dioxide 28 BUN 37 H Creatinine 1.10 Estimated GFR > 60.0 BUN/Creatinine Ratio 33.6 H Glucose 100 Calcium 7.3 L Magnesium Total Bilirubin 0.7 AST 50 ALT 10 Alkaline Phosphatase 128 H Total Protein 7.3 Albumin 4.1 Globulin 3.2 Albumin/Globulin Ratio 1.3 Nasal Screen MRSA (PCR) Blood Type Antibody Screen 12/11/19 12/11/19 12/11/19 15:53 16:20 21:47 WBC RBC Hgb Hct MCV MCH MCHC RDW Plt Count Neut % (Auto) Lymph % (Auto) Garrett % (Auto) Eos % (Auto) Baso % (Auto) Neut # (Auto) Lymph # (Auto) Garrett # (Auto) Eos # (Auto) Baso # (Auto) PT INR APTT Sodium Potassium Chloride Carbon Dioxide BUN Creatinine Estimated GFR BUN/Creatinine Ratio Glucose Calcium Magnesium 1.9 Total Bilirubin AST ALT Alkaline Phosphatase Total Protein Albumin Globulin Albumin/Globulin Ratio Nasal Screen MRSA (PCR) Negative for mrsa Blood Type O Positive Antibody Screen Negative 12/11/19 12/12/19 12/12/19 23:59 04:31 04:31 WBC 5.4 RBC 3.06 L Hgb 9.2 L 9.4 L Hct 28.4 L 28.6 L MCV 93.4 MCH 30.7 MCHC 32.9 RDW 14.1 Plt Count 87 L Neut % (Auto) 68.7 Lymph % (Auto) 19.0 L Garrett % (Auto) 9.6 Eos % (Auto) 1.8 L Baso % (Auto) 0.9 Neut # (Auto) 3700 Lymph # (Auto) 1000 L Garrett # (Auto) 500 Eos # (Auto) 100 Baso # (Auto) 0 PT 66.5 H D INR 5.8 H* APTT 55 H D Sodium Potassium Chloride Carbon Dioxide BUN Creatinine Estimated GFR BUN/Creatinine Ratio Glucose Calcium Magnesium Total Bilirubin AST ALT Alkaline Phosphatase Total Protein Albumin Globulin Albumin/Globulin Ratio Nasal Screen MRSA (PCR) Blood Type Antibody Screen 12/12/19 04:31 WBC RBC Hgb Hct MCV MCH MCHC RDW Plt Count Neut % (Auto) Lymph % (Auto) Garrett % (Auto) Eos % (Auto) Baso % (Auto) Neut # (Auto) Lymph # (Auto) Garrett # (Auto) Eos # (Auto) Baso # (Auto) PT INR APTT Sodium 141 Potassium 4.2 Chloride 110 H Carbon Dioxide 27 BUN 27 H Creatinine 1.00 Estimated GFR > 60.0 BUN/Creatinine Ratio 27.0 H Glucose 92 Calcium 7.1 L Magnesium Total Bilirubin AST ALT Alkaline Phosphatase Total Protein Albumin Globulin Albumin/Globulin Ratio Nasal Screen MRSA (PCR) Blood Type Antibody Screen Assessment & Plan Assessment & Plan narrative: cute Supratherapeutic INR, on warfarin, present on admission, active. - reports patient had been taking Coumadin however given his markedly elevated INR it is unclear whether he took appropriate dosing - patient was taking additional aspirin - patient's goal INR is 2.5-3.5 given mitral valve replacement in atrial fibrillation - will correct INR to 2.0, at that point surgery consultation will be obtained for possible EGD given guaiac-positive melanotic stool 2. Gastrointestinal bleeding with melena, present on admission, active. -Patient endorses dark stools for several days. No complaints of abdominal pain or cramping or heartburn. - given supratherapeutic INR and melena, GI consultation for possible endoscopy once INR is 2.0 or less 3. Chronic Atrial fibrillation, present on admission, stable -Patient without complaints of chest pain, acknowledges episodes of tachyarrhythmias present with controlled rate in the 90s. -Will continue diltiazem XT 120 mg daily. 4. Essential hypertension, present on admission, stable --Will continue patient's home regimen of diltiazem XT 120 mg daily 5. Parkinson's disease, present on admission, stable --Will continue patient's home regimen of carbidopa levodopa 25/100 3 times daily. -Will continue patient's home regimen of citalopram 20 mg daily and mirtazapine 12.5 mg daily. VTE prophylaxis: SCDs, patient with supratherapeutic INR. Diet: Full liquid
--- NOTE | 2019-12-12 14:54 | PT-IP ANOTE ---
pt with PT of 66.5 and INR of 5.8. talked to Dr. Guerra that PT will hold PT for today due to high PT/INR and doctor agreed.
[2019-12-12 16:51] LABS: INR 3.9 (0.9-1.3); Prothrombin Time 44.5 SECONDS (10.1-12.7)
[2019-12-12 21:23] LABS: INR 2.3 (0.9-1.3); Prothrombin Time 26.5 SECONDS (10.1-12.7)
[2019-12-13] VITALS (23 sets, daily range): BP systolic 85–148; BP diastolic 56–95; PULSE 70–111; RESP 14–63; TEMP 36.2–37.7; O2SAT 94–99
--- NOTE | 2019-12-13 | PATH_ITS ---
[facility] Accession Number: [id number] . 01 Material submitted: . PART A: gastrointestinal site - GASTRIC MUCOSA PART B: gastrointestinal site - GASTRIC POLYP PART C: esophagus, E-G Junction - GE JUNCTION . 01 Clinical history: . INR 8.0 . 02 Diagnosis: A. Stomach, Biopsy: Antral mucosa with mild chronic gastritis. Negative for Helicobacter by immunohistochemistry. Negative for intestinal metaplasia. Negative for dysplasia and malignancy. . B. Stomach, Polyp, Biopsy: Fundic gland polyp. No evidence of Helicobacter organisms on H/E stain. Negative for intestinal metaplasia. Negative for dysplasia and malignancy. . C. Gastroesophageal Mucosa, Biopsy: Oxyntic mucosa with no diagnostic abnormality. Negative for intestinal metaplasia. Negative for dysplasia and malignancy. [facility] 12/16/2019 1238 Local . 02 Electronically signed: . Yvette Marin MD, Pathologist NPI- [id number] . 01 Gross description: . Part A: GASTRIC MUCOSA: Received in formalin is 1 fragment(s) of brannon, soft tissue measuring 0.1 x 0.1 x 0.1 cm submitted entirely in 1 cassette(s) Part B: GASTRIC POLYP: Received in formalin is 1 fragment(s) of brannon, soft tissue measuring 0.2 x 0.1 x 0.1 cm submitted entirely in 1 cassette(s) Part C: GE JUNCTION: Received in formalin is 1 fragment(s) of brannon, soft tissue measuring 0.1 x 0.1 x 0.1 cm submitted entirely in 1 cassette(s) [place] [place]/14/2019 1920 Local . 02 Microscopic: . A. An immunohistochemical stain was performed to evaluate for Helicobacter organisms and is negative. The control stain showed appropriate reactivity. . * This test was developed and its performance characteristics determined by [facility]. It has not been cleared or approved by the U.S. Food and Drug Administration. The FDA has determined that such clearance or approval is not necessary. This test is used for clinical purposes. It should not be regarded as investigational or for research. . 02 Pathologist provided ICD-10: R10.9 . 02 CPT . 904078, 396571, 376470, D16201 Performed at: [address] [id number] MD Armin Mccray MD Phone: [phone] Performed at: [address] [id number] MD Yvette Marin MD Phone: [phone]
[2019-12-13 05:38] LABS: Add Manual Diff / Slide Review NO; Basophils Absolute Auto 0 /uL (0-100); Basophils Percent Auto 0.8 % (0-2); Eosinophils Absolute Auto 100 /uL (0-450); Eosinophils Percent Auto 2.6 % (2-4); Hematocrit 25.8 % (41-53); Hemoglobin 8.4 g/dL (13.5-17.5); Lymphocytes Absolute Auto 1000 /uL (1100-4500); Lymphocytes Percent Auto 22.9 % (25-40); Mean Corpuscular HGB Conc 32.6 % (30-36); Mean Corpuscular Hemoglobin 30.3 PG (26-34); Mean Corpuscular Volume 92.8 fL (80-100); Monocytes Absolute Auto 400 /uL (0-900); Monocytes Percent Auto 9.7 % (3-14); Neutrophils Absolute Auto 2900 /uL (1500-7000); Platelet Count 80 X10^3/uL (150-400); Red Blood Cell Count 2.78 X10^6/uL (4.5-5.9); Red Cell Distribution Width 13.7 % (11.6-14.8); White Blood Cell Count 4.6 X10^3/uL (4.5-11.0)
[2019-12-13 05:40] LABS: INR 1.7 (0.9-1.3); Prothrombin Time 19.2 SECONDS (10.1-12.7)
[2019-12-13 05:47] LABS: BUN Creatinine Ratio 23.3 (6-22); Blood Urea Nitrogen 21 mg/dL (9-20); Calcium 7.3 mg/dL (8.4-10.2); Carbon Dioxide 28 mmol/L (22-32); Chloride 108 mmol/L (98-107); Estimated Glomerular Filt Rate > 60.0 mL/min (>60); Glucose 85 mg/dL (80-110); HEMOLYSIS < 15 (0-50); Potassium 4.4 mmol/L (3.4-5.1); Sodium 139 mmol/L (137-145)
--- NOTE | 2019-12-13 07:57 | PM.CN ---
History of Present Illness Consult details Date Patient Seen: 12/13/19 Time Patient Seen: 07:57 Chief complaint: INR 8.0 Reason for consult: Melena, history of PUD Requesting provider: Hayley Guerra Narrative: This is a 74-year-old man with h/o CAD, mitral valve repair, chronic atrial fibrillation anticoagulation with warfarin, hypertension, hypothyroidism, parkinsonism, chronic back pain with left foot drop and obstructive sleep apnea using CPAP who presented to the ER after he noticed bright red hematuria two days ago. He has been on Coumadin for 7 yrs. He has noticed dark stool for several months. He was found to have INR 11 in the ER, and was treated with vitamin K, and FFP. His INR is now 1.7. He denies abdominal pain, heartburn, nausea, vomiting. He denies hemoptysis, hematemesis or hematochezia. He denies fevers, chills, nasal congestion, sore throat.He is normally active and independent in activities of daily living. His last colonoscopy was 20 years ago, and was normal, per the patient. He has never had an EGD, but says he has stomach ulcers for which he takes protonix. ROS: Thirteen system review is otherwise negative other than as mentioned below and in HPI. PE: GENERAL: Well groomed and cooperative. Appears stated age. Answers questions promptly and appropriately. Vital signs noted. HENT: Normocephalic, atraumatic. Hearing intact. Oral mucosa is pink and moist. EYES: Conjunctiva pink, sclera white, no periorbital swelling. CARDIOVASCULAR: irregularly irregular; rate controlled at 84 with some bursts of tachycardia on tele. No pedal edema. RESPIRATORY: Non-tachypneic, breathing comfortably on room air. GASTROINTESTINAL: Abdomen soft and non-distended; non tender, no incisional scars GENITALURINARY: No flank tenderness. MUSCULOSKELETAL: Equal tone and mass bilaterally. Multiple bruises on the forearms SKIN: Warm, dry, soft, appropriate color for ethnicity. No other lesions, rashes, or wounds. NEURO: Alert and Oriented X 3. Tremor, speech hesitancy c/w Parkinson's PSYCH: Appropriate affect and mood. Meds Home Medications and Allergies Home Medications Medication Instructions Recorded Confirmed Type atorvastatin 10 mg PO DAILY 04/20/18 12/11/19 History carbidopa-levodopa 1 tab PO TID 04/20/18 12/11/19 History citalopram 20 mg PO DAILY 04/20/18 12/11/19 History diltiazem HCl [Cartia XT] 120 mg PO DAILY 04/20/18 12/11/19 History levothyroxine 100 mcg PO DAILY 04/20/18 12/11/19 History warfarin 5 mg PO QTUTHSA 04/20/18 12/11/19 History mirtazapine 15 mg PO DAILY 12/11/19 12/11/19 History pantoprazole [Protonix] 40 mg PO DAILY 12/11/19 12/11/19 History Allergies Allergy/AdvReac Type Severity Reaction Status Date / Time codeine [CODEINE] Allergy Unknown Abdominal Verified 04/20/18 11:27 Pain Penicillins [PENICILLINS] Allergy Unknown Abdominal Verified 04/20/18 11:27 Pain aspirin [ASPIRIN] AdvReac Mild STOMACH Verified 04/20/18 11:27 PROBLEMS oxycodone [OXYCODONE] AdvReac Unknown Abdominal Verified 04/20/18 11:27 Pain Exam Vital Signs (past 8 hours): - 12/12/19 23:38 12/13/19 00:05 12/13/19 00:12 Temperature 97.3 F L 97.2 F L Pulse Rate 82 77 Respiratory Rate 18 20 Blood Pressure 131/77 109/81 Pulse Oximetry 97 12/13/19 00:23 12/13/19 00:37 12/13/19 03:00 Temperature 97.2 F L 97.2 F L Pulse Rate 77 81 Respiratory Rate 26 H 20 Blood Pressure 109/81 122/61 115/76 Pulse Oximetry 97 12/13/19 05:05 12/13/19 05:52 12/13/19 05:54 Temperature 97.6 F Pulse Rate 79 84 Respiratory Rate 18 20 Blood Pressure 123/82 134/79 Pulse Oximetry 96 94 95 Oxygen Delivery Method Room Air Oxygen Flow Rate 0 Objective Imaging Chest x-ray: Radiologist's impression: [address] [address] XRay Report Signed Patient: Daniel Lord#: [id number] : 1945Acct:[id number] Age/Sex: 74 / MDate of Service: 12/11/19 Loc: ED Accession Number: [id number] Procedure: XR chest 1V Ordering Provider: Brianne Kelley MD PROCEDURE: XR CHEST 1V INDICATIONS: hemoptasis TECHNIQUE: One view of the chest was acquired. COMPARISON: [facility], CHEST 1 VIEW, 02/06/2016, 16:59. FINDINGS: Surgical changes and devices: Median sternotomy changes are present. Lungs and pleura: Lungs are clear. No pleural effusions or pneumothorax. Mediastinum: Mediastinal contours appear normal. The heart is markedly enlarged. There is aortic atherosclerosis. Bones and chest wall: No suspicious bony lesions. Degenerative changes of the shoulders and spine are similar to the prior study. Overlying soft tissues appear unremarkable. IMPRESSION: Cardiomegaly without overt heart failure. No acute cardiopulmonary process is appreciated. Dictated by: Moses Nolasco M.D. on 12/11/2019 at 15:11 Labs Result Diagrams: 12/13/19 04:34 12/13/19 04:34 Labs: Laboratory Results - last 24 hr 12/11/19 12/12/19 12/12/19 16:20 16:34 20:51 WBC RBC Hgb Hct MCV MCH MCHC RDW Plt Count Neut % (Auto) Lymph % (Auto) [place] % (Auto) Eos % (Auto) Baso % (Auto) Neut # (Auto) Lymph # (Auto) [place] # (Auto) Eos # (Auto) Baso # (Auto) PT 44.5 H D 26.5 H D INR 3.9 H 2.3 H Sodium Potassium Chloride Carbon Dioxide BUN Creatinine Estimated GFR BUN/Creatinine Ratio Glucose Calcium Blood Type O Positive Antibody Screen Negative 12/13/19 12/13/19 12/13/19 04:34 04:34 04:34 WBC 4.6 RBC 2.78 L Hgb 8.4 L Hct 25.8 L MCV 92.8 MCH 30.3 MCHC 32.6 RDW 13.7 Plt Count 80 L Neut % (Auto) 64.0 Lymph % (Auto) 22.9 L [place] % (Auto) 9.7 Eos % (Auto) 2.6 Baso % (Auto) 0.8 Neut # (Auto) 2900 Lymph # (Auto) 1000 L [place] # (Auto) 400 Eos # (Auto) 100 Baso # (Auto) 0 PT 19.2 H D INR 1.7 H Sodium 139 Potassium 4.4 Chloride 108 H Carbon Dioxide 28 BUN 21 H Creatinine 0.90 Estimated GFR > 60.0 BUN/Creatinine Ratio 23.3 H Glucose 85 Calcium 7.3 L Blood Type Antibody Screen Assessment & Plan Assessment and plan (1) Acute GI bleeding: Current visit: Yes Status: Acute (2) Anticoagulation goal of INR 2.5 to 3.5: Current visit: Yes Status: Acute (3) Chronic atrial fibrillation: Current visit: Yes Status: Acute (4) Tremor: Current visit: No Status: Acute (5) Left-sided weakness: Current visit: No Status: Acute (6) Anticoagulant overdosage: Current visit: Yes Status: Acute (7) Hematuria: Current visit: Yes Status: Acute Assessment & Plan narrative: This is a 74-year-old man with complex cardiac history, who was admitted with an INR of 11, and melena. He has a history of peptic ulcer disease, and is on daily Protonix. He has not had a colonoscopy in 20 years. Had a long discussion with him about possible sources of his melena. Explained that I could do an upper endoscopy today to rule out a bleeding ulcer, gastritis, esophagitis or other causes of upper GI bleed. He will need prep for colonoscopy, which can be done as an outpatient. 45 minutes were spent face to face with the patient. More than 50% of the time was spent in counseling and co-ordination of care regarding exam, medical history, surgical history, risks and benefits of EGD, details of the procedure, and expected outcomes. Risks and benefits of EGD with biopsy, and procedures for hemostasis were discussed with the patient including risk of bleeding, perforation, need for additional procedures, risks of anesthesia. The patient desires to proceed with the EGD procedure. Plan: NPO EGD with possible biopsy, possible procedures for hemostasis to be done today Time Spent With Patient Time with patient: Greater than 35 minutes
--- NOTE | 2019-12-13 07:59 | PC.NURSE ---
Addendum entered by Janina Gavin R.N. 12/13/19 11:05: Pt off floor @ 0845, returned to unit @ 1030. No active source of bleeding found, recent bleed obvious. Pt resting comfortably, denies pain, I just want to sleep it off VSS. Tele d/c'd per order. Original Note: Am Shift Pt is A/o x3, tremors per baseline, NPO for scope today. Dr Ramey into see Pt @ 0745, will rec. outpatient colonoscopy as well. Brief vtach noted to tele 8 beat run, Dr Ramey aware. Pt remains asymptomatic, during and after event.
[2019-12-13] MEDS: PANTOPRAZOLE 40 MG VIAL IV (09:06)
--- NOTE | 2019-12-13 09:14 | PC.NURSE ---
Late Entry 12/12/2019 AM shift Pt A/o x3, forgetful at times, baseline Parkinsons, has been impulsive, BA/Chair alarm in place for safety. Pt using urinal with gross hematuria, no clots noted, but wine colored, not able to see through. Dr Guerra is aware. Await GI consult for scope after INR is below 2. Current INR 5.8 Vit K infusing, no c/o pain. No stools available to yony, though melana reported by Pt for a few days at least
--- NOTE | 2019-12-13 09:51 | PM.OP.ENDO ---
Operative Date/Time/Diagnoses Date of procedure: 12/13/19 Time of procedure: 09:51 Pre-op diagnosis: Melena Post-op diagnosis: other (Erosive gastritis bleeding gastric polyp) Procedure & Clinicians Study performed: Esophagogastroduodenoscopy, with biopsies of gastric mucosa with cold forceps, removal of gastric polyp with hot snare, and biopsy of GE junction with cold forceps Same procedure as scheduled: Yes Indications: Melena, history of peptic ulcer. Due to complex cardiac and neurologic history, for the safety of the patient he will need to be sedated and monitored by anesthesiologist while I performed the procedure. Surgeon: Yaneth Perez Procedure Notes SCOAP/Timeout: Performed Procedure in detail: The patient was brought to the room and placed in left lateral decubitus position with all bony prominences padded. A time-out was performed and then the patient was placed under anesthesia by Dr. Watts. A bite block was placed between the teeth to protect the patient's teeth, lips, and tongue from the scope. Once adequately sedated a gastroscope was placed through the bite block and across the patient's tongue and into the esophagus. A tubular view of the esophagus was maintained throughout the procedure as I advanced the scope down the esophagus and into the stomach. In the stomach I advanced the scope to the pylorus, and popped through the pylorus into the duodenum. There were some small erosions in the duodenal bulb, which were not actively bleeding. No visible vessels were seen. I flexed into the 2nd portion of the duodenum, and no active inflammation or bleeding was seen there. I then withdrew the scope back into the stomach, and evaluated the gastric mucosa. There were many small erosions with stigmata of recent bleeding, but no active bleeding or visible vessels were seen. I then examined the greater curve of the stomach, and many gastric polyps were seen consistent with the patient's history of PPI use. One gastric polyp looked like it had recently bled, it was removed with hot snare and sent for pathology. I then retroflexed and saw a Hill grade 2 hiatal hernia. There were some small mucosal erosions in the gastric cardia with stigmata of recent bleeding, but no active bleeding. I then straightened the scope and withdrew it into the esophagus. The Z-line was seen at approximately 45 cm. There were some small mucosal breaks, but no large tongues of saline mucosa going up into the esophagus. Took a biopsy at this location. He had a small Schatzki ring which was wider than 2 cm. This was about 3 cm superior to the Z-line. I then went withdrew the scope from the esophagus and out of the patient. He tolerated the procedure well. He was awakened from anesthesia and transferred to the postanesthesia care unit in stable condition. Findings: gastric ulcer, gastritis, hiatal hernia (Hill grade 2), polyp (Gastric polyp, stigmata of recent bleed) and other findings (Small duodenal erosions, nonbleeding.) Specimen(s): none sent (Gastric mucosa, gastric polyp, GE junction) Complications: none Impression: Active gastritis, with bleeding gastric polyp Post-procedure Recommendations: No ASA/NSAIDS, Stop medication(s) (Stop all NSAIDs, hold anticoagulation until hemoglobin is stable), Start medication(s) (Double-dose PPI in hospital and after discharge) and Other recommendation (Follow-up will depend on biopsy results) Follow up: as needed Disposition: PACU
--- NOTE | 2019-12-13 10:56 | SUR.PHASEI ---
Pt transferred by bed to room 231 in stable condition. Bedside report given.
[2019-12-13] MEDS: MIRTAZAPINE 15 MG TABLET PO (11:08)
[2019-12-13] MEDS: LEVOTHYROXINE 100 MCG TABLET PO (11:08)
[2019-12-13] MEDS: CITALOPRAM 20 MG TABLET PO (11:09)
[2019-12-13] MEDS: CARBIDOPA-LEVODOPA 25/100 TABLET 1 EACH PO ×3 (11:09→21:24)
[2019-12-13] MEDS: dilTIAZem CD 120 MG CAP PO (11:10)
--- NOTE | 2019-12-13 12:20 | P.PN_ITS ---
Subjective Subjective Date Patient Seen: 12/13/19 Interval history: The patient is a 74-year-old male with a history of atrial fibrillation and mitral valve repair on Coumadin who was admitted to the hospital with markedly elevated INR, patient was found to have melanotic stool, and hematuria. The patient's INR was reversed. INR today is 1.7. He continues to have significant hematuria. The patient underwent upper endoscopy earlier today. That did show active gastritis with a bleeding gastric polyp. Patient is concerned about continued hematuria. Exam Vital Signs (past 8 hours): - 12/13/19 05:05 12/13/19 05:52 12/13/19 05:54 Temperature 97.6 F Pulse Rate 79 84 Respiratory Rate 18 20 Blood Pressure 123/82 134/79 Pulse Oximetry 96 94 95 12/13/19 08:31 12/13/19 09:55 12/13/19 10:01 Temperature 98.5 F 97.9 F Pulse Rate 97 H 70 80 Respiratory Rate 25 H 63 H 19 Blood Pressure 141/73 H 85/56 L 87/56 L Pulse Oximetry 96 97 99 12/13/19 10:05 12/13/19 10:10 12/13/19 10:15 Temperature Pulse Rate 83 82 84 Respiratory Rate 22 14 16 Blood Pressure 100/64 103/56 L 100/70 Pulse Oximetry 98 95 95 12/13/19 10:30 12/13/19 11:04 Temperature 98.5 F 98.7 F Pulse Rate 93 H 87 Respiratory Rate 15 20 Blood Pressure 117/74 139/77 Pulse Oximetry 96 99 Oxygen Delivery Method Room Air Oxygen Flow Rate 0 Narrative Exam Narrative: Pleasant gentleman resting comfortably in no obvious distress Lungs: Decreased breath sounds bilateral Cardiac exam: Irregularly irregular, normal S1-S2, 2/6 systolic ejection mur mur, positive click Abdomen: Soft nontender nondistended Extremities: No edema Objective Labs Result Diagrams: 12/13/19 04:34 12/13/19 04:34 Labs: Laboratory Results - last 24 hr 12/11/19 12/12/19 12/12/19 16:20 16:34 20:51 WBC RBC Hgb Hct MCV MCH MCHC RDW Plt Count Neut % (Auto) Lymph % (Auto) [place] % (Auto) Eos % (Auto) Baso % (Auto) Neut # (Auto) Lymph # (Auto) [place] # (Auto) Eos # (Auto) Baso # (Auto) PT 44.5 H D 26.5 H D INR 3.9 H 2.3 H Sodium Potassium Chloride Carbon Dioxide BUN Creatinine Estimated GFR BUN/Creatinine Ratio Glucose Calcium Blood Type O Positive Antibody Screen Negative 12/13/19 12/13/19 12/13/19 04:34 04:34 04:34 WBC 4.6 RBC 2.78 L Hgb 8.4 L Hct 25.8 L MCV 92.8 MCH 30.3 MCHC 32.6 RDW 13.7 Plt Count 80 L Neut % (Auto) 64.0 Lymph % (Auto) 22.9 L [place] % (Auto) 9.7 Eos % (Auto) 2.6 Baso % (Auto) 0.8 Neut # (Auto) 2900 Lymph # (Auto) 1000 L [place] # (Auto) 400 Eos # (Auto) 100 Baso # (Auto) 0 PT 19.2 H D INR 1.7 H Sodium 139 Potassium 4.4 Chloride 108 H Carbon Dioxide 28 BUN 21 H Creatinine 0.90 Estimated GFR > 60.0 BUN/Creatinine Ratio 23.3 H Glucose 85 Calcium 7.3 L Blood Type Antibody Screen Assessment & Plan Assessment & Plan narrative: Assessment & Plan narrative: Acute Supratherapeutic INR, on warfarin, present on admission, active. - reports patient had been taking Coumadin however given his markedly elevated INR it is unclear whether he took appropriate dosing - patient was taking additional aspirin - patient's goal INR is 2.5-3.5 given mitral valve replacement in atrial fibrillation - will correct INR to 2.0, at that point surgery consultation will be obtained for possible EGD given guaiac-positive melanotic stool -patient received FFP last evening, INR this morning was 1.7. Patient had upper endoscopy 2. Gastrointestinal bleeding with melena, present on admission, active. -Patient endorses dark stools for several days. No complaints of abdominal pain or cramping or heartburn. - given supratherapeutic INR and melena, GI consultation for possible endoscopy once INR is 2.0 or less -upper endoscopy shows active gastritis with a bleeding gastric polyp. -general surgery recommends no further anticoagulation until bleeding has stabilized. 3. Chronic Atrial fibrillation, present on admission, stable -Patient without complaints of chest pain, acknowledges episodes of tachyarrhythmias present with controlled rate in the 90s. -Will continue diltiazem XT 120 mg daily. -Coumadin on hold given upper GI bleed 4. Essential hypertension, present on admission, stable --Will continue patient's home regimen of diltiazem XT 120 mg daily 5. Parkinson's disease, present on admission, stable --Will continue patient's home regimen of carbidopa levodopa 25/100 3 times daily. -Will continue patient's home regimen of citalopram 20 mg daily and mirtazapine 12.5 mg daily. 6. -acute blood loss anemia -will transfuse for hemoglobin hematocrit less than 7, patient received several units of FFP thus far. Anticipate discharge home once bleeding has stabilized. He will ultimately need to be back on Coumadin at some point given his mitral valve replacement and atrial fibrillation. VTE prophylaxis: SCDs, patient with supratherapeutic INR. Diet: Full liquid
--- NOTE | 2019-12-13 14:43 | PT.IIE ---
Current Diagnoses Chronic atrial fibrillation, unspecified (12/11/19) Gastrointestinal hemorrhage, unspecified (12/11/19) Tremor, unspecified (12/11/19) Hematuria, unspecified (12/11/19) Weakness (12/11/19) Poisoning by anticoagulants, accidental (unintentional), initial encounter (12/11/19) Encounter for therapeutic drug level monitoring (12/11/19) long term care pharmacist (current) use of anticoagulants (12/11/19) Surgery Performed Operation Date: 12/13/19 09:00 Actual Procedures p Esophagogastroduodenoscopy with biopsy - Yaneth Perez MD Surgical History (Last Reviewed 12/13/19 @ 08:02 by Yaneth Perez MD) H/O mitral valve repair (Acute) History of appendectomy (Acute) History of back surgery (Acute) History of surgery on wrist (Acute) Medical History (Last Reviewed 12/13/19 @ 08:02 by Yaneth Perez MD) Anticoagulation goal of INR 2.5 to 3.5 (Acute) Chronic atrial fibrillation (Acute) Hypertension (Acute) Hypothyroidism (Acute) MARCELO (obstructive sleep apnea) (Acute) Parkinsonism (Acute) Tremor (Acute) Physical Therapy Inpatient Evaluation/Re-Eval M1 PT/OT-IP Prior Functional Status Start: 12/13/19 08:32 Freq: NEEDED Status: Active Protocol: Document 12/13/19 14:13 AW (Rec: 12/13/19 14:43 AW [id number]) Medical Review Prior Functional Status Medical History Reviewed Yes Communication Pt with some degree of dysarthria but manages effective verbal communication . Mobility and Gait Pt states he uses a SPC 100% of the time. He is mod independent with the SPC at home and that he uses the cane to walk to the mailbox on a paved walkway. He is unable to quantify that distance but states that was about as far as he could normally walk. Activities of Daily Living and IADL's Pt requires occasional assist with LB dressing tasks with which his helps. He states he is independent with showering and toileting. Prior Functional Level (Other details) Pt states he occasionally drives but largely depends on other household members for transportation. His manages his medications. They manage their finances jointly. Social History Household Members spouse,children Living Arrangements Mobile home Number of Floors (Floors) One Floor Number of Stairs To Enter/Railing? 3 CATRACHO with left rail ascending Home Environment Standard Height Toilet,Tub/ Shower Home Equipment Front Wheel Walker,Straight Cane,Raised Toilet Seat Without Armrests,Shower Seat with Backrest,Hand Held Shower ,Grab Bars In Shower Additional Social History Comment Daniel lives with his of 27 years, Amber, her son, Rishi, and her brother, Jaydon. Amber had open heart surgery ~6-8 weeks ago. According to critical care technician note, she is able to provide assist as needed. M2 PT-IP Current Condition Start: 12/13/19 08:32 Freq: NEEDED Status: Active Protocol: Document 12/13/19 14:13 AW (Rec: 12/13/19 14:43 AW [id number]) Physical Therapy Current Condition Current Condition Evaluation Date 12/13/19 Treatment Diagnosis GI bleed, recent fall, Parkinson's disease, impaired mobility Onset Date 12/11/19 M3 PT-IP Subjective Start: 12/13/19 08:32 Freq: NEEDED Status: Active Protocol: Document 12/13/19 14:13 AW (Rec: 12/13/19 14:43 AW [id number]) Subjective Physical Therapy Visit Type Type Initial Evaluation Visit Start Time 13:31 Visit Stop Time 13:59 Total Visit Minutes 28 Notes Pt underwent EGD this morning. Most recent INR: 1.7 and PT: 19.2. Physical Therapy Visit Comments Patient Comments Pt willing to participate with PT Therapy Pain Assessment Pain When Pain Assessed During Mobility Pain Present Pain Present Denied Pain M4 PT-IP Mobility and Gait Start: 12/13/19 08:32 Freq: NEEDED Status: Active Protocol: Document 12/13/19 14:13 AW (Rec: 12/13/19 14:43 AW [id number]) PT-Bed Mobility Assessment Rolling Type of Rolling Roll to Right Level of Assist Standby Assistance Supine to Sit Supine to Sit Contact Guard Assistance Scooting Scooting to Edge of Bed Standby Assistance PT-Transfer Assessment Sit to and From Stand Sit to and from Stand Contact Guard Assistance,1 Person Assistance,Use of Upper Extremities Equipment Transfer Assistive Device Gait Belt,Front Wheeled Walker Orthotic/Prosthetic Devices or Brace: No Transfers Transfer Destination Chair Transfer Technique pt ambulated with FWW Transfer Ability Level of Assist Contact Guard Assistance,Use of Upper Extremities Comments Mobility Comments Pt was encountered sitting upright in bed. With HOB flattened, pt completed roll to his right side and supine to sit CGA. From bed in the lowest position, pt completed sit to stand CGA using FWW and cues to push from the bed. He ambulated to the toilet where he stood using the grab bar for balance assist as he voided. Again with the FWW, he ambulated to the chair on the near side of the bed and sat CGA with cues to keep the walker with him for safety until ready to sit. Pt was positioned in the chair with alarm on, call light and all needs within reach. RN was notified that pt was up in chair with alarm. Prior to treatment, BP was 148 /95. Sitting EOB, BP 116/68. After activity, BP was 103/56. Pt denied lightheadedness or any other syncopal symptoms. Gait Assessment Gait Gait Assistance Required: Standby Assistance,Contact Guard Assist Distance (Feet) 15 Assistive Devices Assistive Device Gait Belt,Front Wheeled Walker Orthotic/Prosthetic Devices or Brace: No Gait Deviations General Gait Pattern Decreased Stride Length, Decreased Feet Clearance, Flexed Trunk,Narrow Based Gait ,Step-to Gait Factors Limiting Gait Function Factors Limiting Gait Function Abnormal Tonal Influences, Decreased Strength,Limited Range of Motion,Poor Balance, Poor Safety Awareness Comments Gait Comments Pt ambulated in the room as per mobility comments. Gait was notable for steppage pattern on the left side to compensate for plantar flexion contracture and anterior compartment weakness, but pt was able to clear his feet bilaterally though with decreased excursion. Stair Climbing Assessment Comments Stair Climbing Comments Not assessed. PT-Balance Assessment Sitting Balance and Reactions Static Sitting Balance Ability Good Dynamic Sitting Balance Ability Good Standing Balance and Reactions Static Standing Balance Ability Fair Dynamic Standing Balance Ability Fair Device Used FWW M5 PT-IP Objective Assessments Start: 12/13/19 08:32 Freq: NEEDED Status: Active Protocol: Document 12/13/19 14:13 AW (Rec: 12/13/19 14:43 AW [id number]) Orientation Orientation/Cognition Level of Alertness Alert Orientation Name,Month,Place,Situation Safety Awareness Decreased Safety Awareness Comments Pt exhibits mild facial athetosis and mild dysarthria. Gross Range of Motion Lower Extremity ROM Assessment Left Impaired Impairments Plantar flexion contracture left foot Strength Lower Extremity Strength Assessment Bilaterally Impaired Hip B 4-/5 Knee R 4+/5; L 4/5 Ankle R 4/5; L 3/5 Sensation Assessment Sensation Gross Sensation WNL Muscle Tone Muscle Tone WNL No Comments Muscle Tone Comments Torso rigidity, mild RUE resting tremor M6 PT-IP Treatment Start: 12/13/19 08:32 Freq: NEEDED Status: Active Protocol: Document 12/13/19 14:13 AW (Rec: 12/13/19 14:43 AW [id number]) Physical Therapy Treatment Education Education Provided Precautions,Safety Other Treatments Other Treatment Performed Provided education on role of PT, plan of care, and selection of appropriate assistive device. M7 PT-IP Assessment and Plan Start: 12/13/19 08:32 Freq: NEEDED Status: Active Protocol: Document 12/13/19 14:13 AW (Rec: 12/13/19 14:43 AW [id number]) PT Summary Assessment and Plan Potential Rehabilitation Potential Good Status of Condition at Evaluation Evolving Summary Impairments ROM,Strength,Balance,Tone,Bed Mobility,Transfers,Gait, Activity Tolerance Assessment Summary Daniel is a 74 yo man with history of Parkinson's disease who was admitted with supratherapeutic INR, GI bleed , and recent fall. At baseline , pt reports he is modified independent with use of SPC 100% of the time although limited to mailbox distances. He also reports he receives occasional assistance with lower body dressing from his . On evaluation, he required CGA for all mobility but is likely near his baseline. Pt would benefit from continued acute PT to address balance, gait, and activity tolerance impairments . He will require 24/7 assist with all mobility at discharge and would benefit from home health therapy to address safety in the home, to mitigate the risks of increasing immobility, and to reduce fall risk overall. Goals Bed Mobility Goal Independent Transfer Goal Independent,Front Wheeled Walker Gait Goal Independent,Cane,Front Wheel Walker Gait Distance 75 Other Goals - up/down 3 steps with left rail ascending SBA Days to Meet Goals 5 Frequency of Treatment Frequency Of Treatment Once a Day Treatment Plan Physical Therapy Treatment Plan Bed Mobility Training,Transfer Training,Gait Training, Therapeutic Exercise,Balance Retraining,Discharge Planning, Neuromuscular Re-ed, Coordination Retraining,Manual Therapy Other Recommendations and Next Treatment assess gait with SPC for AD Focus recommendation, assess safety on stairs Recommendations To Nursing Amount of Assist Needed 1 Person Assist Discharge Recommendations PT Discharge Recommendations Home with 24/ Assist,Home Health Transportation Needs at Discharge Private Vehicle
--- NOTE | 2019-12-13 15:31 | CM.DPC ---
DCP: continued: follow up to plan of yesterday: PT Berna saw pt this afternoon. Confirmed that he should ok for home setting but recommended HH services. As per discussion with Amber yesterday have now given referral by phone and fax of face sheet and today's progress note from Dr. Guerra to [facility] : anticipate RN/OT/PT. It is not clear yet when pt will be medically ready for d/c, likely early this week. DCP team to continue to follow up for d/c planning: plan at this time is for home with family support and [facility]. Face/Face document is signed by Dr. Guerra but is not yet completed.
[2019-12-13] MEDS: PANTOPRAZOLE 40 MG TABLET PO (21:24)
[2019-12-14] VITALS (8 sets, daily range): BP systolic 93–121; BP diastolic 59–74; PULSE 78–87; RESP 16–17; TEMP 36.7–37.2; O2SAT 95–97
--- NOTE | 2019-12-14 02:20 | PC.NURSE ---
Addendum entered by Lavern Zhang R.N. 12/14/19 06:38: 0600 Pt states he slept well during night. Denies pain or other problems. Pt continues with hematuria. No dysuria or difficulty voiding. Pt is anxious to discharge home. Addendum entered by Lavern Zhang R.N. 12/14/19 06:37: 0400 addendum entered in error on wrong patient. Addendum entered by Lavern Zhang R.N. 12/14/19 05:01: 0400 Pt denies pain and nausea. Pt remains on insulin drip at 5.9 units/hr. CBG 258-280. Pt sleeping on and off. Original Note: [id number] Pt arouses easily. States that he has been sleeping well and denies pain. Assessment completed. Pt initally having difficulty with orientation questions, but once more awake able to respond correctly. Pt able to reposition without assistance. Encouraged patient to turn from side to side. Pt declined being repositioned side lying currently with pillows support. Pt encouraged to call for any questions or needs. Pt agreeable.
[2019-12-14 05:08] LABS: Add Manual Diff / Slide Review NO; Basophils Absolute Auto 0 /uL (0-100); Basophils Percent Auto 0.7 % (0-2); Eosinophils Absolute Auto 100 /uL (0-450); Eosinophils Percent Auto 2.3 % (2-4); Hemoglobin 8.3 g/dL (13.5-17.5); Lymphocytes Absolute Auto 1000 /uL (1100-4500); Lymphocytes Percent Auto 19.9 % (25-40); Mean Corpuscular HGB Conc 33.2 % (30-36); Mean Corpuscular Hemoglobin 30.5 PG (26-34); Mean Corpuscular Volume 91.9 fL (80-100); Monocytes Absolute Auto 500 /uL (0-900); Monocytes Percent Auto 10.2 % (3-14); Neutrophils Absolute Auto 3300 /uL (1500-7000); Neutrophils Percent Auto 66.9 % (50-75); Platelet Count 93 X10^3/uL (150-400); Red Blood Cell Count 2.72 X10^6/uL (4.5-5.9); Red Cell Distribution Width 13.8 % (11.6-14.8)
[2019-12-14 05:19] LABS: BUN Creatinine Ratio 21.1 (6-22); Blood Urea Nitrogen 19 mg/dL (9-20); Calcium 7.3 mg/dL (8.4-10.2); Carbon Dioxide 29 mmol/L (22-32); Chloride 106 mmol/L (98-107); Estimated Glomerular Filt Rate > 60.0 mL/min (>60); Glucose 74 mg/dL (80-110); HEMOLYSIS < 15 (0-50); Potassium 4.1 mmol/L (3.4-5.1); Sodium 138 mmol/L (137-145)
[2019-12-14] MEDS: LEVOTHYROXINE 100 MCG TABLET PO (06:17)
[2019-12-14] MEDS: PANTOPRAZOLE 40 MG TABLET PO (06:17)
[2019-12-14] MEDS: CARBIDOPA-LEVODOPA 25/100 TABLET 1 EACH PO ×2 (08:34→14:45)
[2019-12-14] MEDS: MIRTAZAPINE 15 MG TABLET PO (08:34)
[2019-12-14] MEDS: ATORVASTATIN 10 MG TABLET PO (08:34)
[2019-12-14] MEDS: CITALOPRAM 20 MG TABLET PO (08:34)
[2019-12-14] MEDS: dilTIAZem CD 120 MG CAP PO (08:35)
--- NOTE | 2019-12-14 09:33 | PT.IPTN ---
Current Diagnoses Chronic atrial fibrillation, unspecified (12/11/19) Gastrointestinal hemorrhage, unspecified (12/11/19) Tremor, unspecified (12/11/19) Hematuria, unspecified (12/11/19) Weakness (12/11/19) Poisoning by anticoagulants, accidental (unintentional), initial encounter (12/11/19) Encounter for therapeutic drug level monitoring (12/11/19) vermin exterminator (current) use of anticoagulants (12/11/19) Surgery Performed Operation Date: 12/13/19 09:00 Actual Procedures p Esophagogastroduodenoscopy with biopsy - Yaneth Perez MD Physical Therapy Treatment Note M2 PT-IP Current Condition Start: 12/13/19 08:32 Freq: NEEDED Status: Active Protocol: Document 12/13/19 14:13 AW (Rec: 12/13/19 14:43 AW [id number]) Physical Therapy Current Condition Current Condition Evaluation Date 12/13/19 Treatment Diagnosis GI bleed, recent fall, Parkinson's disease, impaired mobility Onset Date 12/11/19 M3 PT-IP Subjective Start: 12/13/19 08:32 Freq: NEEDED Status: Active Protocol: Document 12/14/19 08:37 LJ (Rec: 12/14/19 09:33 LJ [id number]) Subjective Physical Therapy Visit Type Type Treatment Note Visit Start Time 08:37 Visit Stop Time 08:51 Total Visit Minutes 13 Physical Therapy Visit Comments Patient Comments Pt willing to participate with PT Therapy Pain Assessment Pain When Pain Assessed During Mobility Pain Present Pain Present Denied Pain M4 PT-IP Mobility and Gait Start: 12/13/19 08:32 Freq: NEEDED Status: Active Protocol: Document 12/14/19 08:37 LJ (Rec: 12/14/19 09:33 LJ [id number]) PT-Transfer Assessment Sit to and From Stand Sit to and from Stand Standby Assistance,1 Person Assistance,Use of Upper Extremities Equipment Transfer Assistive Device Gait Belt,Front Wheeled Walker Orthotic/Prosthetic Devices or Brace: No Transfers Transfer Destination Chair Transfer Technique pt ambulated with FWW Transfer Ability Level of Assist Standby Assistance,1 Person Assistance,Use of Upper Extremities Comments Mobility Comments Pt sitting upright in chair. SBA for sit<>stand with use of arm rests. Gait Assessment Gait Gait Assistance Required: Standby Assistance,Contact Guard Assist Distance (Feet) 100 Assistive Devices Assistive Device Gait Belt,Front Wheeled Walker Orthotic/Prosthetic Devices or Brace: No Gait Deviations General Gait Pattern Decreased Stride Length, Decreased Feet Clearance, Flexed Trunk,Narrow Based Gait ,Step-to Gait Factors Limiting Gait Function Factors Limiting Gait Function Abnormal Tonal Influences, Decreased Strength,Limited Range of Motion,Poor Balance, Poor Safety Awareness Comments Gait Comments Pt ambulated in hallway short distance. Fatigued after ~50' and needed to turn around. Left LE steppage gait pattern. Required CGA for safety M5 PT-IP Objective Assessments Start: 12/13/19 08:32 Freq: NEEDED Status: Active Protocol: Document 12/13/19 14:13 AW (Rec: 12/13/19 14:43 AW [id number]) Orientation Orientation/Cognition Level of Alertness Alert Orientation Name,Month,Place,Situation Safety Awareness Decreased Safety Awareness Comments Pt exhibits mild facial athetosis and mild dysarthria. Gross Range of Motion Lower Extremity ROM Assessment Left Impaired Impairments Plantar flexion contracture left foot Strength Lower Extremity Strength Assessment Bilaterally Impaired Hip B 4-/5 Knee R 4+/5; L 4/5 Ankle R 4/5; L 3/5 Sensation Assessment Sensation Gross Sensation WNL Muscle Tone Muscle Tone WNL No Comments Muscle Tone Comments Torso rigidity, mild RUE resting tremor M6 PT-IP Treatment Start: 12/13/19 08:32 Freq: NEEDED Status: Active Protocol: Document 12/14/19 08:37 LJ (Rec: 12/14/19 09:33 LJ [id number]) Physical Therapy Treatment Education Education Provided Precautions,Safety M7 PT-IP Assessment and Plan Start: 12/13/19 08:32 Freq: NEEDED Status: Active Protocol: Document 12/14/19 08:37 LJ (Rec: 12/14/19 09:33 LJ [id number]) PT Summary Assessment and Plan Potential Rehabilitation Potential Good Status of Condition at Evaluation Evolving Summary Impairments ROM,Strength,Balance,Tone,Bed Mobility,Transfers,Gait, Activity Tolerance Assessment Summary Pt ambulating in room and hallway CGA. Fatigued after ~ 50' in hallway and walked back to room. He is SBA for mobility. He self limited his walking, being aware of his level of fatigue and need to get back to the room. Goals Bed Mobility Goal Independent Transfer Goal Independent,Front Wheeled Walker Gait Goal Independent,Cane,Front Wheel Walker Gait Distance 75 Other Goals - up/down 3 steps with left rail ascending SBA Days to Meet Goals 5 Frequency of Treatment Frequency Of Treatment Once a Day Treatment Plan Physical Therapy Treatment Plan Bed Mobility Training,Transfer Training,Gait Training, Therapeutic Exercise,Balance Retraining,Discharge Planning, Neuromuscular Re-ed, Coordination Retraining,Manual Therapy Other Recommendations and Next Treatment assess gait with SPC for AD Focus recommendation, assess safety on stairs Recommendations To Nursing Amount of Assist Needed 1 Person Assist Discharge Recommendations PT Discharge Recommendations Home with 24/ Assist,Home Health Transportation Needs at Discharge Private Vehicle
--- NOTE | 2019-12-14 10:28 | OT.IP.EVAL ---
Current Diagnoses Chronic atrial fibrillation, unspecified (12/11/19) Gastrointestinal hemorrhage, unspecified (12/11/19) Tremor, unspecified (12/11/19) Hematuria, unspecified (12/11/19) Weakness (12/11/19) Poisoning by anticoagulants, accidental (unintentional), initial encounter (12/11/19) Encounter for therapeutic drug level monitoring (12/11/19) termite control technician (current) use of anticoagulants (12/11/19) Surgery Performed Operation Date: 12/13/19 09:00 Actual Procedures p Esophagogastroduodenoscopy with biopsy - Yaneth Perez MD Past Medical History (Last Reviewed 12/13/19 @ 08:02 by Yaneth Perez MD) Anticoagulation goal of INR 2.5 to 3.5 (Acute) Chronic atrial fibrillation (Acute) Hypertension (Acute) Hypothyroidism (Acute) MARCELO (obstructive sleep apnea) (Acute) Parkinsonism (Acute) Tremor (Acute) Surgical History (Last Reviewed 12/13/19 @ 08:02 by Yaneth Perez MD) H/O mitral valve repair (Acute) History of appendectomy (Acute) History of back surgery (Acute) History of surgery on wrist (Acute) Occupational Therapy Inpatient Evaluation/Re-Eval to provide assist as needed. M1 PT/OT-IP Prior Functional Status Start: 12/14/19 12:33 Freq: NEEDED Status: Active Protocol: Document 12/14/19 09:39 [facility] (Rec: 12/14/19 13:02 [facility] [id number]) Medical Review Prior Functional Status Medical History Reviewed Yes Communication Pt with some degree of dysarthria but manages effective verbal communication . Mobility and Gait Pt states he uses a SPC 100% of the time. He is mod independent with the SPC at home and that he uses the cane to walk to the mailbox on a paved walkway. He is unable to quantify that distance but states that was about as far as he could normally walk. Activities of Daily Living and IADL's Pt requires occasional assist with LB dressing tasks with which his helps to get clothing over his feet. He states he is independent with showering and toileting. Prior Functional Level (Other details) Pt states he occasionally drives but largely depends on other household members for transportation. His manages his medications. They manage their finances jointly. Social History Household Members spouse,children Living Arrangements Mobile home Number of Floors (Floors) One Floor Number of Stairs To Enter/Railing? 3 CATRACHO with left rail ascending Home Environment Standard Height Toilet,Tub/ Shower Home Equipment Front Wheel Walker,Straight Cane,Raised Toilet Seat Without Armrests,Shower Seat with Backrest,Hand Held Shower ,Grab Bars In Shower Additional Social History Comment Daniel lives with his of 27 years, Amber, her son, Rishi, and her brother, Jaydon. Amebr had open heart surgery ~6-8 weeks ago. According to daycare worker note, she is able to provide assist as needed. M2 OT-IP Current Condition Start: 12/14/19 12:33 Freq: Status: Active Protocol: Document 12/14/19 09:39 [facility] (Rec: 12/14/19 13:02 [facility] [id number]) Occupational Therapy Current Condition Current Condition Evaluation Date 12/14/19 Treatment Diagnosis Hematuria, acute supratherapeutic INR Diagnosis Onset Date 12/11/19 Weight Bearing Status Weight Bearing Status Weight Bear as Tolerated M3 OT- IP Subjective and Pain Start: 12/14/19 12:33 Freq: Status: Active Protocol: Document 12/14/19 09:39 [facility] (Rec: 12/14/19 13:02 [facility] [id number]) OT- Subjective Occupational Therapy Visit Type Type Initial Evaluation Visit Start Time 09:39 Visit Stop Time 10:28 Total Visit Minutes 49 Occupational Therapy Visit Comments Patient Comments Pt cooperative and really wanting to shave and shower. Patient/Caregiver Goals Pt wanting to go home. OT Pain Assessment Pain When Pain Assessed At Rest Pain Present Pain Present Denied Pain M4 OT- IP ADL's Start: 12/14/19 12:33 Freq: Status: Active Protocol: Document 12/14/19 09:39 [facility] (Rec: 12/14/19 13:02 [facility] [id number]) OT [id number] Comments OT Self-Feeding Comments Pt having difficulty to use regular utensils and would benefit from larger handled utensils. Therefore called the kitchen for the request. OT ADL-Grooming General Evaluation Grooming Ability Minimal Assistance Comments OT Grooming Comments Pt able to stand at the sink with FWWn and needing to sit due to being tired. Pt needing assist for to help shave due to being tired. Pt able to brush his teeth , wash his hands and face on his own . OT ADL-Oral Care General Eval Oral Care Ability Independent OT ADL-Dressing General Eval Lower Body Dressing Ability Moderate Assistance Areas Needing Assistance Socks OT ADL-Toileting Comments OT Toileting Comments Pt not having to use the toilet. OT ADL-Bathing Comments OT Bathing Comments Pt wanting to shower however after shaving got too tired and wanting to lie down instead. Notified nursing of pt may want to shower later. M5 OT- IP IADL's Start: 12/14/19 12:33 Freq: Status: Active Protocol: Document 12/14/19 09:39 [facility] (Rec: 12/14/19 13:02 [facility] [id number]) OT-Instrumental Activities of Daily Living Medication Management Medication Management Caregiver Administers Money Management Money Management Comments Pt states does his own financing and helps to clean the house. Meal Preparation Meal Preparation Caregiver Provides Assist M6 OT- IP Functional Cognition Start: 12/14/19 12:33 Freq: Status: Active Protocol: Document 12/14/19 09:39 [facility] (Rec: 12/14/19 13:02 [facility] [id number]) Cognitive Factors Limiting Selfcare Function Cognitive Ability Level of Alertness Alert Patient Orientation Name,Age,Birthday,Month,Date, Year,Day of Week,Place, Situation Attention Span Ability Capable of Focused Attention, Capable of Sustained Attention Ability to Follow Commands Able to Follow One Step Commands Memory Description Short Term Impaired Safety Awareness Underestimates Need for Assistance Cognitive Comments Cognitive Assessment Comments Pt needing reminders to use his SPC as trying to get to the bed as getting fatigued while standing. VC for safety awareness to use the counter to help lower himself down to the folding chair. OT- Vision and Hearing OT- Hearing Assessment OT- Hearing Assessment WFL OT- Vision Assessment Visual Acuity WFL M7 OT- IP Mobility and Balance Start: 12/14/19 12:33 Freq: Status: Active Protocol: Document 12/14/19 09:39 [facility] (Rec: 12/14/19 13:02 [facility] [id number]) OT- Bed Mobility Assessment Sit to Supine Sit to Supine Assist Standby Assistance,1 Person Assistance OT-Transfer Assessment Sit to and From Stand Sit to and from Stand Contact Guard Assistance, Minimal Assistance,Moderate Assistance Transfers Transfer Ability Standby Assistance,Contact Guard Assistance Technique Transfer Destination Bed,Bedside Commode,Chair Transfer Technique Stand Step Pivot Devices Transfer Assistive Devices Gait Belt,Straight Cane Comments Mobility Comments Pt needing MODA to stand from lower chair, otherwise if a higher surface able to stand with SBA. As pt tires needing CGA while walking with SPC. OT- Balance Assessment Sitting Balance and Reactions Static Sitting Balance Ability Good Standing Balance and Reactions Static Standing Balance Ability Fair Comments Other Balance Tests/Deviations/Treatment Pt able to stand for 5 minutes : while shaving before needing to sit down to complete grooming needs. M8 OT- IP Objective Assessments Start: 12/14/19 12:33 Freq: Status: Active Protocol: Document 12/14/19 09:39 [facility] (Rec: 12/14/19 13:02 [facility] [id number]) OT Gross Range of Motion Upper Extremity Range of Motion Assessment Bilaterally Impaired ROM Impairments AROM LUE shoulder flexion 0-20 , RUE 0-40 OT Strength Upper Extremity Strength Assessment Bilaterally Impaired Comments Strength Comments BUE strength RUE 3-/5 to 3+/5 from proximal to distal. LUE 2-/5 to 3+/5 from proximal to distal. OT-Muscle Tone Assessment Muscle Tone WNL Yes Comments Muscle Tone Comments Mild tremors in hands during grooming needs. M9 OT- IP Assessment and Plan Start: 12/14/19 12:33 Freq: Status: Active Protocol: Document 12/14/19 09:39 [facility] (Rec: 12/14/19 13:02 [facility] [id number]) OT Summary Assessment and Plan Potential Rehabilitation Potential Good Analytic Complexity at Evaluation Low Summary OT Impairments Range of Motion,Strength, Balance,Functional Cognition, Functional Mobility,Self- Feeding,Grooming,Dressing, Toileting,Bathing,Toilet Transfers,Shower Transfers, Activity Tolerance Progress Towards Goals Slow Progress due to Medical Issues,Slow Progress due to Activity Tolerance Assessment Summary Pt low complexity and main barrier is decreased activity tolerance and now needing more assist for ADl and functional mobility needs. Pt has supportive family at home and available to assist pt at home. OT to work with pt on helping to increase his independence for ADl's via improvement of BUE strength, AROM for BUE, activity tolerance,balance, and education for safety awareness. Goals Self-Feeding Goal Independent Grooming Goal Independent Dressing Goal Minimal Assistance Toileting Goal Independent Bathing Goal Standby Assistance Toilet Transfer Goal Standby Assistance Shower Transfer Goal Contact Guard Assistance Patient/Caregiver Education Goal Caregiver Independent Assisting Patient Days to Meet Goals 5 Frequency of Treatment Frequency Of Treatment Once a Day Treatment Plan OT Treatment Plan ADL Training,Functional Cognition Training,Functional Mobility,Patient/Family Education,Discharge Planning Other Treatment Recommendations and Next Shower Treatment Focus Discharge Recommendations OT Discharge Recommendations Home with Assistance,Home Health Transportation Needs at Discharge Private Vehicle
[2019-12-14 10:45] LABS: Prothrombin Time 22.6 SECONDS (10.1-12.7)
--- NOTE | 2019-12-14 12:47 | CM.DPC ---
Addendum entered by Jerilyn Ribeiro R.N. 12/14/19 16:04: Patient has discharge orders. Called Juwan at [facility] and gave him update that patient is discharging today. Faxed over orders, face to face, and prog notes, pending discharge summary. Original Note: DCP Cont: Met briefly with patient during team rounds. Discussed home health, and is in agreement, that home health will benefit patient. Has chosen [facility]. Have face to face already signed, but went ahead and faxed over face sheet, H&P, as well as today's P.T. notes, so they will have referral on hand. Let Birgit know via fax, that when patient is discharged, will include orders, face to face, as well as discharge summary. P: DCP to continue to follow. Plan is for home with [facility] nursing, P.T. and O.T. Jerilyn Ribeiro RN/Shirt Marker
--- NOTE | 2019-12-14 13:30 | DIET.PN ---
Dietary Progress Note Assessment: Mr. Lord is a 74-year-old male with a history of atrial fibrillation and mitral valve repair on Coumadin who was admitted to the hospital with markedly elevated INR. The patient's INR was reversed. INR today is 1.7. He continues to have significant hematuria. The patient underwent upper endoscopy earlier today that did show active gastritis with a bleeding gastric polyp. He reports improved appetite today. He does not endorse following any particular diet restrictions or modifications at home. HT: 182.88cm WT: 69.2 kg BMI: 20.7 Labs: INR: 11.1 on admission; 1.7 MNA: 10 Nutrition Diagnosis: Food-medication interaction r/t combined ingestion of medication and food that results in undesirable interaction aeb reports vitamin K rich foods and coumadin. Interventions: Provided MNT on consistency of Vit K rich foods and medication management. Provided handouts on recommended servings and consistency. Diet Order: Heart Healthy EER: 2000 kcal; 83-89g @ 1.2-1.3g/kg Monitoring/Evaluations: Wt, PO's, requests education when is present.
[2019-12-14 15:37] LABS: Hematocrit 26.7 % (41-53); Hemoglobin 8.8 g/dL (13.5-17.5); Mean Corpuscular HGB Conc 32.9 % (30-36); Mean Corpuscular Hemoglobin 30.2 PG (26-34); Platelet Count 122 X10^3/uL (150-400); Red Cell Distribution Width 13.6 % (11.6-14.8); White Blood Cell Count 6.1 X10^3/uL (4.5-11.0)
[2019-12-14 16:03] LABS: Neutrophils Absolute Manual 4941 /uL (3000-5900); RBC Morphology Normal Morphology; Total Cells Counted 100
--- NOTE | 2019-12-14 16:06 | PM.DS.1 ---
History of Present Illness History of Present Illness Date Patient Seen: 12/14/19 Chief complaint: INR 8.0 Narrative: Mr. Daniel Lord is a 74-year-old male with history significant for coronary artery disease, mitral valve repair, chronic atrial fibrillation anticoagulation with warfarin, hypertension, hypothyroidism, parkinsonism, chronic back pain with left foot drop and obstructive sleep apnea using CPAP who presents to the ER after he noticed bright red hematuria today. The patient has been on warfarin for 70 years and has recently noticed increased bruising and dark stool. Patient sustained a fall 3 days ago and has a large bruise on his left chest. He had routine laboratory tests completed at [facility] where they found his INR to be greater than 8.0 and sent him to the ER for further evaluation. The patient reports no complaints of chest pain and is aware of occasional palpitations. He has no shortness of breath and denies cough or wheezing. He has no complaints of abdominal pain, heartburn, nausea vomiting. He has had no hemoptysis, hematemesis or hematochezia. He reports no recent complaints of fevers or chills no nasal congestion or sore throat. He is normally active and independent in activities of daily living. Upon arrival the ER the patient is afebrile with temperature 97.6?, heart rate 91, blood pressure 119/74 respiratory rate of 16 with saturation 97%. On laboratory analysis the patient is found have a white count of 6.0, hemoglobin 10.0, hematocrit of 30.2 and platelets of 110. On his coagulation studies he has a PT of 124.3, INR of 11.1 and PTT of 70. His electrolytes are within normal limits and he has a BUN of 37 and creatinine 1.1. His nonfasting glucose is 100. He has a bilirubin of 0.7, AST of 50, ALT of 10 and alkaline phosphatase of 128. In the ER the patient was given vitamin K 10 mg by mouth and a unit of fresh frozen plasma. The patient remains asymptomatic and stable vital signs. Patient is admitted to the hospital for supratherapeutic INR and GI bleeding. Discharge Providers Provider Date of admission: 12/11/19 17:24 Discharge Date: 12/14/19 Primary care physician: Nano Brooks MD Consults: 12/11/19 19:05 Consult to Dietitian, Adult Routine Comment: Reason For Exam: Recent weight loss, supratherapeutic INR on warfar 12/12/19 11:35 Consult to Occupational Therapy Evaluate & Treat Comment: Physician Instructions: Evaluate and treat Consult to Physical Therapy Evaluate & Treat Comment: Physician Instructions: Evaluate and Treat 12/14/19 15:34 Consult to Home Health Routine Comment: Reason For Exam: Home Health nursing, P.T, O.T. Discharge provider: Hayley Guerra MD Summary Hospital Course Discharge Diagnosis: 1. Acute blood loss anemia secondary to supratherapeutic INR 2. Upper GI bleeding secondary to bleeding gastric polyp which was removed and associated gastritis 3. Hematuria etiology unclear 4. Chronic atrial fibrillation 5. Mitral valve replacement previously unclear 6. Parkinson's disease 7. Hyperlipidemia 8. Depression Hospital Course: Patient is a 74-year-old male who was admitted to the hospital for supratherapeutic INR. He was seen in clinic and his INR was noted to be 8 which is as high as it registered. He arrived to the hospital and was found to have a PT INR of 11.2. The patient also was noted to have melanotic stool. Patient received FFP and vitamin K. his INR was reversed to 1.7 and he underwent upper endoscopy. This showed a gastric polyp which was bleeding, in addition to gastritis. The polyp was removed. In addition the patient had hematuria which developed at the time of admission. Despite reversing his INR to less than 1.7, the patient continue to have hematuria. He did require blood transfusion, but hemoglobin hematocrit stabilized to 8/25. Given the patient's persistent hematuria despite near normal INR recommendations were made for him to remain off Coumadin and follow-up with urology for arm CT scanning and possible cystoscopy 4 to determine the etiology of his hematuria. Patient had no further evidence of upper GI bleeding. He was placed on b.i.d. proton pump inhibitor. He was deemed appropriate for discharge and plans were made for him to be discharged home. The patient will be referred to [facility] for an outpatient appointment. He will need workup of his hematuria prior to resuming his Coumadin for atrial fibrillation and mitral valve placement. Patient is discharged home. Status at Discharge Cognitive/behavioral status at discharge: oriented Functional status at discharge: uses cane/walker Overall status at discharge: patient is back to baseline Time Spent with Patient Time spent: Less than 30 minutes Exam Vital Signs (past 8 hours): - 12/14/19 09:00 12/14/19 12:00 Temperature 98.7 F Pulse Rate 78 Respiratory Rate 17 Blood Pressure 110/69 Pulse Oximetry 96 96 Oxygen Delivery Method Room Air Oxygen Flow Rate 0 Narrative Exam Narrative: Pleasant gentleman in no acute distress Patient is dysarthric which is his baseline Lungs: Decreased breath sounds but clear to auscultation Cardiac exam: Irregularly irregular normal S1-S2 3/6 systolic ejection murmur Extremity no edema Objective Labs Result Diagrams: 12/14/19 15:17 12/14/19 04:39 Labs: Laboratory Results - last 24 hr 12/11/19 12/14/19 12/14/19 16:20 04:39 04:39 WBC 5.0 RBC 2.72 L Hgb 8.3 L Hct 25.0 L MCV 91.9 MCH 30.5 MCHC 33.2 RDW 13.8 Plt Count 93 L Neut % (Auto) 66.9 Lymph % (Auto) 19.9 L Dickens % (Auto) 10.2 Eos % (Auto) 2.3 Baso % (Auto) 0.7 Neut # (Auto) 3300 Lymph # (Auto) 1000 L Dickens # (Auto) 500 Eos # (Auto) 100 Baso # (Auto) 0 Total Counted Seg Neutrophils % Band Neutrophils % Lymphocytes % (Manual) Monocytes % (Manual) Eosinophils % (Manual) Neutrophils # (Manual) RBC Morphology PT INR Sodium 138 Potassium 4.1 Chloride 106 Carbon Dioxide 29 BUN 19 Creatinine 0.90 Estimated GFR > 60.0 BUN/Creatinine Ratio 21.1 Glucose 74 L Calcium 7.3 L Crossmatch See Detail 12/14/19 12/14/19 10:28 15:17 WBC 6.1 RBC 2.90 L Hgb 8.8 L Hct 26.7 L MCV 92.0 MCH 30.2 MCHC 32.9 RDW 13.6 Plt Count 122 L Neut % (Auto) Lymph % (Auto) Dickens % (Auto) Eos % (Auto) Baso % (Auto) Neut # (Auto) Lymph # (Auto) Dickens # (Auto) Eos # (Auto) Baso # (Auto) Total Counted 100 Seg Neutrophils % 80.0 H Band Neutrophils % 1.0 L Lymphocytes % (Manual) 14.0 L Monocytes % (Manual) 4.0 Eosinophils % (Manual) 1.0 L Neutrophils # (Manual) 4941 RBC Morphology Normal morphology PT 22.6 H INR 2.0 H Sodium Potassium Chloride Carbon Dioxide BUN Creatinine Estimated GFR BUN/Creatinine Ratio Glucose Calcium Crossmatch Discharge Plan Discharge Plan Patient Disposition: Home Discharge comment: Patient needs follow up appointment this week with [facility] [phone] for Hematuria. Needs to resume coumadin for heart valve Discharge orders & Medications Prescriptions: New pantoprazole 40 mg Tablet,Delayed Release (Dr/Ec) 40 mg PO 0700,2100 60 Days Qty: 120 RF: 0 Continued atorvastatin 10 mg Tablet 10 mg PO DAILY RF: 0 levothyroxine 100 mcg Tablet 100 mcg PO DAILY RF: 0 citalopram 20 mg Tablet 20 mg PO DAILY RF: 0 diltiazem HCl [Cartia XT] 120 mg Capsule,Extended Release 24hr 120 mg PO DAILY RF: 0 carbidopa-levodopa 25-100 mg Tablet 1 tab PO TID RF: 0 mirtazapine 15 mg Tablet 15 mg PO DAILY RF: 0 Discontinued warfarin 5 mg Tablet 5 mg PO QTUTHSA RF: 0 pantoprazole [Protonix] 40 MG tablet,delayed release (DR/EC) 40 mg PO DAILY RF: 0 Follow up/Referrals: Nano Brooks MD [Primary Care Provider] - Diet/Activity/Treatments Diet: Diet as Tolerated Activity: as tolerated Visit Report/Discharge Packet Instructions: DI for Gastritis, DI for Hematuria, DI for Stomach Polyps, Warfarin (By mouth) Visit Report Forms: Patient Portal/API, Stroke Signs & Symptoms Discharge Data Primary Care Provider: Nano Brooks
--- NOTE | 2019-12-14 17:32 | PC.NURSE ---
Discharge education given by Gwen, patient left stable and A/Ox4 with family members by private vehicle. PCP appointment made for Friday 12/15 for referral to Urologist. IV removed, tele removed. Patient's belongings returned and taken by family members.
--- NOTE | 2019-12-15 07:34 | CM.DPC ---
DCP Cont: Discharge summary now completed. Faxed over to [facility]. Patient was discharged yesterday, and summary was not yet completed. All other documents were already faxed over yesterday. Jerilyn Ribeiro RN/Telephone Betting Clerk
== END 2019-12-14 17:35 | disposition home health service (06) | DRG 378 ==
LOC: ED 17:24 → AC 17:25 → ICU 17:53
PROVIDERS: Internal Medicine; Nurse Practitioner Adult Health; Surgery; Admitting Provider Internal Medicine; Emergency Provider Emergency Medicine; Family Provider Family Medicine; PCP Family Medicine; Referring Provider Emergency Medicine; Visit Provider Internal Medicine
PROC: 0DJ08ZZ Inspection of Upper Intestinal Tract, Via Natural or Artificial Opening Endoscopic (ICD-10-PCS; CPT 43235; principal; 2019-12-13 09:00)
DX: K29.71 Gastritis, unspecified, with bleeding (principal); D62 Acute posthemorrhagic anemia; I48.20 Chronic atrial fibrillation, unspecified; D68.318 Other hemorrhagic disorder due to intrinsic circulating anticoagulants, antibodies, or inhibitors; K31.7 Polyp of stomach and duodenum; Z79.01 Long term (current) use of anticoagulants; G20 Parkinson's disease; R31.9 Hematuria, unspecified; T45.515A Adverse effect of anticoagulants, initial encounter; I25.10 Atherosclerotic heart disease of native coronary artery without angina pectoris; I10 Essential (primary) hypertension; E03.9 Hypothyroidism, unspecified; G47.33 Obstructive sleep apnea (adult) (pediatric)
CPT/HCPCS: 36415; 36430; 71045; 80048; 80053; 83735; 85014; 85018; 85025; 85610; 85730; 86850; 86900; 86901; 86927; 87797; 94760; 94762; 96365; 96366; 96376; 97116; 97162; 97165; 97530; 99285; 99291; 99292; P9016; C9113; J2704; J3430

== ENCOUNTER → 2020-04-06 12:09 | Outpatient (CLI) | payer OTHER, SELFPAY ==
[2019-12-11 18:50] VITALS: BMI 21.7
[2020-04-06 13:36] LABS: Add Manual Diff / Slide Review NO; Basophils Absolute Auto 0 /uL (0-100); Basophils Percent Auto 0.8 % (0-2); Eosinophils Absolute Auto 100 /uL (0-450); Eosinophils Percent Auto 1.2 % (2-4); Hematocrit 30.1 % (41-53); Hemoglobin 10.1 g/dL (13.5-17.5); Lymphocytes Absolute Auto 1100 /uL (1100-4500); Lymphocytes Percent Auto 23.1 % (25-40); Mean Corpuscular HGB Conc 33.6 % (30-36); Mean Corpuscular Hemoglobin 30.2 PG (26-34); Mean Corpuscular Volume 89.9 fL (80-100); Monocytes Absolute Auto 400 /uL (0-900); Monocytes Percent Auto 7.8 % (3-14); Neutrophils Absolute Auto 3100 /uL (1500-7000); Neutrophils Percent Auto 67.1 % (50-75); Platelet Count 113 X10^3/uL (150-400); Red Blood Cell Count 3.35 X10^6/uL (4.5-5.9); Red Cell Distribution Width 14.5 % (11.6-14.8); White Blood Cell Count 4.6 X10^3/uL (4.5-11.0)
[2020-04-06 13:49] LABS: INR 3.4 (0.9-1.3); Prothrombin Time 39.3 SECONDS (10.1-12.7)
[2020-04-06 13:51] LABS: PTT Partial Thromboplastin Tim 44 SECONDS (26.4-36.2)
[2020-04-06 14:00] LABS: BUN Creatinine Ratio 32.5 (6-22); Blood Urea Nitrogen 39 mg/dL (9-20); Calcium 7.8 mg/dL (8.4-10.2); Carbon Dioxide 29 mmol/L (22-32); Chloride 105 mmol/L (98-107); Estimated Glomerular Filt Rate 59.3 mL/min (>60); Glucose 92 mg/dL (80-110); HEMOLYSIS < 15 (0-50); Sodium 139 mmol/L (137-145)
== END ==
PROVIDERS: Family Provider Family Medicine; PCP Family Medicine; Referring Provider Orthopaedic Surgery; Visit Provider Orthopaedic Surgery
DX: Z01.818 Encounter for other preprocedural examination (principal); Z01.812 Encounter for preprocedural laboratory examination; Z51.81 Encounter for therapeutic drug level monitoring
CPT/HCPCS: 36415; 80048; 85025; 85610; 85730; 93005

== ENCOUNTER 2020-04-08 13:52 | Day surgery (SDC) | payer OTHER, SELFPAY ==
[2019-12-11 18:50] VITALS: BMI 21.7
[2020-04-07 07:25] VITALS: BMI 20.7
[2020-04-08] VITALS (9 sets, daily range): BP systolic 81–114; BP diastolic 45–68; PULSE 65–86; RESP 11–25; TEMP 36.1–36.9; O2SAT 96–100; BMI 20.5
[2020-04-08] MEDS: LACTATED RINGERS 1,000 ML 42 ML IV (14:34)
--- NOTE | 2020-04-08 15:26 | PM.PREOP ---
Pre-operative Note COVID-19 COVID-19 status: Negative Interval Note History & Physical reviewed/Exam performed by Physician: Yes Changes to H&P: No
--- NOTE | 2020-04-08 15:27 | P.OP_ITS ---
Operative Date/Time/Diagnoses Date of procedure: 04/08/20 Time of procedure: 15:58 Pre-op diagnosis: left middle finger PIP dislocation Post-op diagnosis: same Procedure & Clinicians Procedure: Open reduction and fixation left middle finger PIP dislocation Same procedure as scheduled: Yes Indications: This is a 75-year-old gentleman with Parkinson's who about 2 weeks ago jammed his left finger and noted the acute onset of pain and deformity. X- rays showed of left finger PIP dislocation unfortunately it was not reduced initially and he presented several weeks after his dislocation. He is brought the operating room for possible closed reduction with the plan for open reduction and possible fixation. Surgeon: Gaby Turner Anesthesia Type: Local and Other (IV regional) Operative Notes Findings: On reducible closed, reduced open with some the tendency towards recurrence subluxation and thus pinned in a reduced position Closure Type: primary Prosthetic devices, grafts, tissues, transplants, or devices: Single 0.54 K-wire Tourniquet time (min): 25 Procedure in detail: Patient is brought to the operating room he underwent induction of of IV regional anesthesia. Left upper extremities prepped draped standard sterile fashion. Time-out was performed. Antibiotics were given. An attempted closed reduction with longitudinal traction as well as increasing the deformity and gentle manipulation show that the dislocation was not reducible in a closed fashion. Dorsal skin incision was made dissection was carried out through skin and subcutaneous tissues. There was marked thickening of the dorsal skin skin capsule. An incision was made between the sagittal bands and the central slip. The joint was opened. It was meticulously debrided of scar tissue and hematoma. The joint was then carefully reduced. It was somewhat more stable in flexion. There was still a tendency towards dorsal subluxation of the middle phalanx and it was felt that I needed to stabilize it with a K- wire. It was stabilized with a single 0.54 K-wire. AP lateral and oblique many C-arm images confirmed reduction and position of the K-wire. The wound was meticulously irrigated with normal saline. A dense digital block with Marcaine was performed. The dorsal skin incision was closed with interrupted Vicryl and nylon. The keep the pin was cut and bent. The rotation of the finger was specifically checked prior to leaving the operating room. Patient was placed in a bulky hand dressing with plaster. He tolerated the procedure well and was transferred recovery room in satisfactory condition. Complications: none Post-operative Condition: stable Disposition: same day surgery Plan for aftercare: Return to clinic in 10 days or so for x-rays out of plaster AP lateral oblique of the hand. Probable short-arm cast versus hand based splint for an additional 10 days.
[2020-04-08] MEDS: CEFAZOLIN 2 GM/100 ML FROZ.PIGGY IV (15:37)
--- NOTE | 2020-04-08 15:59 | SUR.OPER ---
Supine on padded OR bed, head on pillow, arms secured on padded arm boards at <90 degrees abduction, legs uncrossed, safety belt at thigh, tape over blanket over lower legs.
[2020-04-08] MEDS: BUPIVACAINE 0.5% (PF) VIAL 30 ML INJ (16:29)
== END 2020-04-08 17:38 | disposition home or self-care (01) ==
PROVIDERS: Family Provider Family Medicine; PCP Family Medicine; Referring Provider Orthopaedic Surgery; Visit Provider Orthopaedic Surgery
PROC: (CPT 26785; principal; 2020-04-08 16:45)
DX: S63.251A Unspecified dislocation of left index finger, initial encounter (principal); W19.XXXA Unspecified fall, initial encounter; G20 Parkinson's disease; I48.91 Unspecified atrial fibrillation; G47.33 Obstructive sleep apnea (adult) (pediatric); I45.10 Unspecified right bundle-branch block; I25.10 Atherosclerotic heart disease of native coronary artery without angina pectoris
CPT/HCPCS: 26785; J0690; J2704; J3010